=== PATIENT | male | born 1950 | race Caucasian/White ===

== ENCOUNTER 2018-11-04 09:09 | Inpatient (IN) | payer MEDICARE ==
[2018-11-04] VITALS (14 sets, daily range): BP systolic 120–150; BP diastolic 67–94; BMI 34.5
[~2018-11-04] VITALS: Ht 190.5 cm; Wt 125.5 kg
--- NOTE | ~2018-11-04 | HEMODYNAMI ---
PATIENT:VICKI QUINN MEDICAL RECORD: [id number] : 46 LOCATION:[facility] ADMISSION DATE: 11/04/18 Generatedon:11/04/201813:05 Patient name: VICKI QUINN Patient #: [id number] SSN: DO B: 1950 Date of study: 11/04/2018 Page: Of Hemodynamic Procedure Report Patient Data Patient Demographics First Name: VICKI Gender: Male Last Name: [place] : 1950 Patient #: [id number] Age: 68 year(s) Race: Unknown Additional ID: [id number] Contact details Address: [address] [place] [address] State: [facility] Zip code: [address] Past Medical History Allergies Allergen Reaction Date Comments Reported Other allergy 11/04/2018 Fosamax, aspirin, celecoxib,ibuprofen Admission Admission Data Admission Date: 11/04/2018 Admission Time: 9:09 Arrival Date: 11/04/2018 Arrival Time: 0:00 Height (in.): 75 BSA: 2.47 (m2) Height (cm.): 190.5 BMI: 33.07 (kg/m2) Weight (lbs.): 264.56 Weight (kg.): 120 Lab Results Lab Result Date: 11/04/2018 Lab Result Time: 0:00 Biochemistry Name Units Result Min Max BUN mg/dl 22 --(----)-* 7 18 Creatinine mg/dl 1.1 --(--*-)-- 0.6 1.3 CBC Name Units Result Min Max Hemoglobin g/dl 16 --(--*-)-- 13.5 17.5 Procedure Procedure Types Cath Procedure Diagnostic Procedure [facility] w/Coron[facility] Procedure Description Procedure Date Procedure Date: 11/04/2018 Procedure Start Time: 12:37 Procedure End Time: 12:56 Procedure Staff Name Function Chandan Vang MD Performing Physician Michaelle Sewell RT Monitor Courtney Farmer RN Nurse Yee Obando RT Scrub Daren Coffman RT Scrub Procedure Data Cath Procedure Fluoroscopy Diagnostic fluoroscopy Total fluoroscopy Time: 4.6 time: 4.6 min min Diagnostic fluoroscopy Total fluoroscopy dose: dose: 1261 mGy 1261 mGy Contrast Material Contrast Material Type Amount (ml) Isovue 300 98 Entry Location Entry Primary Successful Side Size Upsize Upsize Entry Closure Mcgowan ccessful Closure Location (Fr) 1 (Fr) 2 (Fr) Remarks Device Remarks Radial Right 6 Fr Mechanical TR artery Short Compression Estimated blood loss: 10 ml Diagnostic catheters Device Type Used For End Catheter Placement DIAGNOSTIC Federico 110cm Procedure 5Fr catheter ([id number]) DIAGNOSTIC [place] 110cm 5 Procedure Fr catheter ([id number]) Procedure Complications No complications Procedure Medications Medication Administration Route Dosage Oxygen etCO2 Nasal cannula 2 l/min Lidocaine 2% added to field 20 Heparin Flush Bag added to field 2 bags (1000units/500ml NS) 0.9% NaCl I.V. 100 ml/hr Versed I.V. 1 mg Fentanyl I.V. 50 mcg Versed I.V. 1 mg Fentanyl I.V. 50 mcg Radial Cocktail I.A. 1 syringe (Verapamil 2mg/Nitro 400mcg/Heparin 1500units) Versed I.V. 1 mg Fentanyl I.V. 50 mcg unlisted medication 1 Hemodynamics Rest BSA: 2.47 (m2) HGB: 16 (g/dl) O2 Consumption: Estimated: 298.61 (ml/min) O2 Cons umption indexed: Estimated:120.89 (ml/min/m) Heart Rate: 84 (bpm) Pressure Samples Time Site Value (mmHg) Purpose Heart Use Rate(bpm) 12:40 LV 126/0,14 Snapshot 81 Gradients Valve Time Site Site Mean SEP/DFP Peak To Heart Use 1 2 (mmHg) (sec/min) Peak Rate (mmHg) (bpm) Aortic 12:41 LV AO 87 Snapshots Pre Cath Intra NCS Post Cath Vital Signs Time Heart Resp SPO2 etCO2 NIBP (mmHg) Rhythm Pain Sedation Rate (ipm) (%) (mmHg) Status Level (bpm) 12:25:53 82 18 98 24.7 163/98(132) NSR 0 (11) 10(A) , No pain 12:30:24 81 18 97 21 161/91(126) NSR 0 (11) 10(A) , No pain 12:34:50 78 19 94 33 142/83(118) NSR 0 (11) 10(A) , No pain 12:39:16 78 15 94 32.2 158/81(117) NSR 0 (11) 10(A) , No pain 12:43:49 89 18 93 24.7 133/79(105) NSR 0 (11) 10(A) , No pain 12:48:11 77 16 94 31.4 144/80(111) NSR 0 (11) 10(A) , No pain 12:52:39 80 12 95 26.2 150/91(121) NSR 0 (11) 10(A) , No pain Medications Time Medication Route Dose Verified Delivered Reason Notes Effectiveness by by 12:29:03 Oxygen etCO2 2 l/min Chandan Buffie used for Nasal Taj Farmer RN procedure cannula 12:29:10 Lidocaine 2% added 20ml Chandan Chandan for local to vial Taj Vang MD anesthetic field 12:29:15 Heparin Flush added 2 bags Chandan Chandan used for Bag to Taj Vang MD procedure (1000units/500ml field NS) 12:29:24 0.9% NaCl I.V. 100 Chandan Buffie Per ml/hr Taj Farmer RN physician 12:30:32 Versed I.V. 1 mg Chandan Buffie for sedation Taj Farmer RN 12:30:37 Fentanyl I.V. 50 mcg Chandan Buffie for sedation Taj Farmer RN 12:35:41 Versed I.V. 1 mg Chandan Buffie for sedation Taj Farmer RN 12:35:45 Fentanyl I.V. 50 mcg Chandan Buffie for sedation Taj Farmer RN 12:40:26 Radial Cocktail I.A. 1 Chandan Chandan for (Verapamil syringe Taj Vang MD vasodilation 2mg/Nitro 400mcg/Heparin 1500units) 12:45:02 Versed I.V. 1 mg Chandan Chandan for sedation Taj Vang MD 12:45:05 Fentanyl I.V. 50 mcg Chandan Chandan for sedation Taj Vang MD 13:01:34 nitro paste dermal 1 inch Chandan Buffie Per to Taj Farmer RN physician chest wall Procedure Log Time Note 12:10:19 Arrival Date: 11/04/2018 12:00:00 AM 12:18:34 Patient Height : 75 inches 12:19:38 Patient Weight : 264.56 lbs 12:20:33 Lab Result : Creatinine 1.1 mg/dl 12::33 Lab Result : BUN 22 mg/dl 12:20:33 Lab Result : Hemoglobin 16 g/dl 12:23:23 Procedure Status Urgent Heart Cath (IP). 12:24:06 Courtney Farmer RN sent for patient. Start room use. 12:24:10 Time tracking: Regular hours (M-F 7:00 - 5:00) 12:24:15 Plan of Care:Hemodynamics will remain stable., Cardiac rhythm will remain stable., Comfort level will be maintained., Respiratory function will remain adequate., Patient/ family verbilizes understanding of procedure., Procedure tolerated without complication., Recovers from procedure without complications.. 12:24:23 Patient received from ED to CCL 1 Alert and oriented. Tansferred to table in Supine position. 12:24:25 Warm blankets applied, and pati hugger turned on for patient comfort. 12:24:26 Correct patient and procedure confirmed by team. 12:24:27 ECG and BP/O2 sat monitors applied to patient. 12:24:30 Vital chart was started 12:24:32 Baseline sample Acquired. 12:24:45 Rhythm: sinus rhythm 12:24:47 Full Disclosure recording started 12:24:57 H&P Date Dictated: 11/04/2018 Emergent; H&P N/A. 12:24:59 Pre-procedure instructions explained to patient. 12:25:01 Family in waiting room. 12:25:03 Patient NPO since Midnight. 12:25:56 Patient allergic to Other allergyFosamax, aspirin, celecoxib,ibuprofen 12:25:59 Is the patient allergic to Iodine/contrast media? No. 12:26:01 Was the patient premedicated? Yes 12:26:03 Is patient on blood thinner?No 12:26:05 Patient diabetic? Yes. 12:26:06 If diabetic: On Metformin? Yes 12:26:10 If on Metformin: Last Dose? 11/03/2018 12:26:29 Snore? Yes 12:26:48 Sleep apnea? Yes 12:27:34 Pre procedure: right dorsailis pedis pulse 1+ Palpable, but thready & weak; easily obliterated 12:27:40 Patient pain scale 0/10 ?. 12:27:51 Lab results completed and on chart. 12:27:56 Right Radial & Right Groin area was prepped with chlora-prep and draped in sterile fashion 12::57 Sharps counted by scrub and verified by RCorwinN. 12:27:59 Physician paged 12::00 Physician arrived 12::00 --------ALL STOP TIME OUT------ 12:28:03 Final Timeout: patient, procedure, and site verified with staff and physician. All members of the team are in agreement. 12:28:06 Right Radial & Right Groin site verified by team. 12:28:10 Fire Safety Assessment: A--An alcohol-based skin anteseptic being used preoperatively., C--Open oxygen or nitrous oxide is being used., D--An ESU, laser, or fiber-optic light is being used. 12:28:15 Physical assessment completed. ASA score P 2 - A patient with mild systemic disease as per Chandan Vang MD. 12:28:32 2) 60-89 Mildly reduced kidney function, and other findings (as for stage 1) point to kidney disease. 12:29:02 Maximum allowable contrast dose (3.7 X eGFR X 0.75)194.25 ml. 12:29:03 Oxygen 2 l/min etCO2 Nasal cannula was administered by Courtney Farmer RN; used for procedure; 12:29:10 Lidocaine 2% 20ml vial added to field was administered by Chandan Vang MD; for local anesthetic; 12:29:10 Sedation plan: IV Moderate Sedation Medication:Versed, Fentanyl 12:29:15 Heparin Flush Bag (1000units/500ml NS) 2 bags added to field was administered by Chandan Vang MD; used for procedure; 12:29:16 Use device set Femoral Dx 12::23 ACIST Syringe (19739) opened to sterile field. 12:29:23 Bag Decanter (2002) opened to sterile field. 12:29:24 0.9% NaCl 100 ml/hr I.V. was administered by Courtney Farmer RN; Per physician; 12:29:26 Medline Cath Pack ([id number]) opened to sterile field. 12:29:28 ACIST Hand Control (23774) opened to sterile field. 12:29:28 ACIST Manifold (52762) opened to sterile field. 12:29:29 DIAGNOSTIC Multipack 5Fr catheter set (QS1111) opened to sterile field. 12:30:32 Versed 1 mg I.V. was administered by Courtney Farmer RN; for sedation; 12:30:37 Fentanyl 50 mcg I.V. was administered by Courtney Farmer RN; for sedation; 12:35:41 Versed 1 mg I.V. was administered by Courtney Farmer RN; for sedation; 12:35:45 Fentanyl 50 mcg I.V. was administered by Courtney Farmer RN; for sedation; 12:35:58 Procedure started. 12:37:30 Local anesthetic to right radial artery with Lidocaine 2% by Chandan Vang MD.INITIAL ACCESS ONLY 12:37:41 A 6 Fr Short sheath was inserted into the Right Radial artery 12:40:26 Radial Cocktail (Verapamil 2mg/Nitro 400mcg/Heparin 1500units) 1 syringe I.A. was administered by Chandan Vang MD; for vasodilation; 12:40:27 A DIAGNOSTIC Federico 110cm 5Fr catheter (178112) was advanced over the wire and used for Procedure. 12:40:33 LV gram done using JAIME 12:42:12 EF : 40 % 12:42:26 RCA angiography performed. 12:44:53 Catheter removed. 12:45:02 Versed 1 mg I.V. was administered by Chandan Vang MD; for sedation; 12:45:05 Fentanyl 50 mcg I.V. was administered by Chandan Vang MD; for sedation; 12:45:18 A DIAGNOSTIC [place] 110cm 5 Fr catheter (697130) was advanced over the wire and used for Procedure. 12:48:12 LCA angiography performed. 12:50:52 Catheter removed. 12:51:00 EMERALD Guide Wire (945-314) opened to sterile field. 12:51:03 Tegaderm 4 x 4 (1626W) opened to sterile field. 12:51:20 TR BAND Large ([id number]) opened to sterile field. 12:51:56 ACCDominant side:Co-Dominant 12:52:23 Sheath removed intact; hemostasis achieved with Mechanical Compression to the Right Radial artery. 12:52:27 Procedure ended.(Physican Out) 12:53:23 Fluoroscopy time 04.60 minutes. 12:53:28 Fluoroscopy dose: 1261 mGy 12:53:28 Flurop Dose total: 1261 12:53:40 Dose Area Product 63189 mGy/cm. 12:54:13 Contrast amount:Isovue 300 98ml. 12:54:16 Maximum allowable dose exceeded? No. 12:54:20 Sharps counted by scrub and verified by R.N. 12:54:23 TR band inflated with 10cc of air. 12:54:24 Insertion/operative site no bleeding no hematoma. 12:54:27 Post Procedure Pulses reassessed and unchanged 12:54:30 Post-procedure physical assessment completed. ASA score P 2 - A patient with mild systemic disease as per Chandan Vang MD. 12:54:42 Post procedure rhythm: unchanged. 12:54:46 Estimated blood loss: 10 ml 12:54:48 Post procedure instruction explained to patient.Patient verbalizes understanding. 12:54:59 Procedure and supply charges have been captured, reviewed, submitted and are correct. 12:55:46 Procedure Complication : No complications 12:55:49 Vital chart was stopped 12:55:50 See physician's report for complete and final results. 12:55:56 Report given to PCU. 12:56:00 Patient transfered to PCU with Bed. 12:56:02 Procedure ended. 12:56:02 Full Disclosure recording stopped 12:56:05 End room use (Document Last) 13:01:34 nitro paste 1 inch dermal to chest wall was administered by Courtney Farmer RN; Per physician; Device Usage Item Name Manufacture Quantity Catalog Hospital Part Current Minimal L ot# / Number Charge Number Stock Stock Serial# Code ACIST Acist 1 23987 097360 210366 702687 20 Syringe Medical (88862) Systems Inc Bag Microtek 1 2001S 259886 48534 798131 5 Decanter Medical Inc. () Medline Medline 1 [id number] 124387 42299 621611 5 Cath Pack ([id number]) ACIST Hand Acist 1 98558 400376 240809 443027 5 Control Medical (85533) Systems Inc ACIST Acist 1 26337 100917 574202 704680 5 Manifold Medical (56723) Systems Inc DIAGNOSTIC Cardinal 1 TB7738 861137 71403 284068 30 Multipack Health 5Fr catheter set (DC0605) DIAGNOSTIC Terumo 1 40-5023 775467 795582 322237 5 Federico 110cm 5Fr catheter (117303) DIAGNOSTIC Terumo 1 40-5013 449691 881918 380934 5 [place] 110cm 5 Fr catheter (433265) EMERALD Cardinal 1 502-021 468045 504213 566151 5 Guide Wire Health (502-080) Tegaderm 4 3M 1 1626W 548410 166385 583270 5 x 4 (1626W) TR BAND Terumo 1 LFB23-IFH 347250 879085 954339 40 Large ([id number]) Signature Audit Theresa Stage Time Signature Unsigned Intra-Procedure 11/04/2018 Michaelle Sewell 1:05:30 PM RT(R) Signatures Performing Physician : Signature : Chandan Vang MD Date : Time : Monitor : Michealle Sewell Signature : RT Date : Time : Nurse : Courtney Farmer RN Signature : Date : Time : [facility] [address] [place], [place] [address]
[2018-11-04] MEDS ORDERED: CALCIUM 250+D T1 TAB PO (09:16)
[2018-11-04] MEDS ORDERED: FLAX SEED OIL PO (09:17)
[2018-11-04] MEDS ORDERED: NEURONTIN 400400 MG PO (09:17)
[2018-11-04] MEDS ORDERED: GLUCOPHAGE500 MG PO (09:18)
[2018-11-04] MEDS ORDERED: LASIX80 MG PO (09:18)
[2018-11-04] MEDS ORDERED: METOPROLOL TART25 MG PO (09:19)
[2018-11-04] MEDS ORDERED: PERCOCET 10-321 EAC1 PO (09:20)
[2018-11-04] MEDS ORDERED: KLOR-CON 1010 MEQ PO (09:22)
[2018-11-04] MEDS ORDERED: PHENERGAN25 M1 PO (09:23)
[2018-11-04] MEDS ORDERED: ZANAFLEX4 MG PO (09:24)
[2018-11-04] MEDS ORDERED: TRAZODONE HCL150 MG PO (09:24)
[2018-11-04] MEDS ORDERED: COUMADIN7.5 MG PO (09:24)
[2018-11-04] MEDS ORDERED: JARDIANCE10 MG PO (09:50)
[2018-11-04 10:19] LABS: BASOPHILS 0.1 % (0-2); EOSINOPHILS 0.5 % (0-7); HEMATOCRIT 46.4 % (42.0-54.0); IMMATURE GRANULOCYTES 0.4 % (0-5); LYMPHOCYTES 37.8 % (15-50); MCH 31.4 pg (26.0-34.0); MCHC 34.5 g/dL (31.0-37.0); MCV 91.2 fL (80.0-100.0); MEAN PLATELET VOLUME 10.8 fL (7.4-10.4); MONOCYTES 5.5 % (2-11); NEUTROPHILS 55.7 % (40-80); PLATELET COUNT 216 10x3/uL (130-400); RBC 5.09 10x6/uL (4.20-6.10); RDW 13.8 % (11.5-14.5); WBC 11.3 10x3/uL (4.8-10.8)
[2018-11-04 10:28] LABS: CALC OSMOLALITY 294 mosm/kg (275-300); CALCIUM 9.4 mg/dL (8.5-10.1); CARBON DIOXIDE 23.9 mmol/L (21.0-32.0); CHLORIDE - SERUM 105 mmol/L (98-107); CREATINE KINASE 250 UL (21-232); CREATININE - SERUM 1.1 mg/dL (0.6-1.3); GLUCOSE 220 mg/dL (74-106); MAGNESIUM - SERUM 2.2 mg/dL (1.8-2.4); POTASSIUM - SERUM 4.2 mmol/L (3.5-5.1); SODIUM 143 mmol/L (136-145); UREA NITROGEN 22 mg/dL (7-18); eGFR NON AFRICAN AMERICAN 70 mL/min (90-120)
[2018-11-04 10:37] LABS: PRO BNP 1095 pg/mL (0-125)
[2018-11-04 10:46] LABS: CKMB 32.8 U/L (0.0-3.6)
[2018-11-04] MEDS ORDERED: LASIX40 MG PO (13:38)
[2018-11-04 14:19] LABS: ALBUMIN 3.2 g/dL (3.4-5.0); ALKALINE PHOSPHATASE 80 U/L (46-116); ALT (SGPT) 29 U/L (10-68); CALC OSMOLALITY 290 mosm/kg (275-300); CALCIUM 8.5 mg/dL (8.5-10.1); CARBON DIOXIDE 26.6 mmol/L (21.0-32.0); CHLORIDE - SERUM 105 mmol/L (98-107); CHOLESTEROL, TOTAL 143 mg/dL (0-200); GLUCOSE 182 mg/dL (74-106); PHOSPHOROUS 3.7 mg/dL (2.5-4.9); POTASSIUM - SERUM 4.1 mmol/L (3.5-5.1); PROTEIN - SERUM 7.1 g/dL (6.4-8.2); SODIUM 142 mmol/L (136-145); T4 THYROXIN - FREE 1.18 ng/dL (0.76-1.46); THYROID STIMULATING HORMONE 0.92 uIU/mL (0.36-3.74); UREA NITROGEN 20 mg/dL (7-18); URIC ACID 6.7 mg/dL (2.6-7.2); eGFR NON AFRICAN AMERICAN 78 mL/min (90-120)
[2018-11-04 14:34] LABS: PLT FUNCT.(P2Y12) PLAVIX 173 PRU (194-418)
[2018-11-04 14:39] LABS: PRO BNP 1212 pg/mL (0-125)
[2018-11-04 14:57] LABS: INR 2.44 (0.85-1.17); PROTIME 25.7 SECONDS (11.6-15.0)
[2018-11-04 14:58] LABS: APTT 55.1 SECONDS (22.8-39.4)
[2018-11-04 16:33] LABS: PLT FUNCT.(P2Y12) PLAVIX 189 PRU (194-418)
--- NOTE | 2018-11-04 19:59 | MORECARE ---
CASE MANAGEMENT DISCHARGE SUMMARY PATIENT: VICKI QUINN UNIT: [id number] ADM DATE: 11/04/18 AGE: 68 : 48 SEX: M ROOM/BED: [facility] AUTHOR: JAYME OSMAN PHYSICIAN: REFERRING PHYSICIAN: HEMALATHA SMITH M.D. DATE OF SERVICE: 11/04/18 Discharge Plan Patient Name: VICKI QUINN Facility: [facility]:[place] : 1950 Planned Disposition: Home Anticipated Discharge Date: Discharge Date: Expected LOS: Initial Reviewer: [email or web address] Initial Review Date: 11/04/2018 Generated: 11/04/18 8:59 pm Patient Name: VICKI QUINN Page 54554 at 1960 All edits/amendments must be made on the electronic document DICTATION DATE: 11/04/181958 PRIMARY CARE COORDINATOR: BHUPINDER 11/04/181958 RPT#: [id number] DC DATE: STATUS: ADM IN [facility] [address] [place] [address] END OF REPORT
--- NOTE | 2018-11-04 20:07 | MORECARE ---
CASE MANAGEMENT DISCHARGE SUMMARY PATIENT: VICKI QUINN UNIT: [id number] ADM DATE: 11/04/18 AGE: 68 : 48 SEX: M ROOM/BED: [facility] AUTHOR: JACQUI,DOC PHYSICIAN: REFERRING PHYSICIAN: HEMALATHA SMITH M.D. DATE OF SERVICE: 11/04/18 Discharge Plan Patient Name: VICKI QUINN Facility: [facility]:[place] : 1950 Planned Disposition: Home Anticipated Discharge Date: Discharge Date: Expected LOS: Initial Reviewer: [email or web address] Initial Review Date: 11/04/2018 Generated: 11/04/18 9:07 pm Comments DCP- Discharge Planning Updated by [email or web address]: Michelle Cook on 11/04/18 7:[address] Patient Name: VICKI QUINN Admission Status: ER Accout number: [id number] Admission Date: 11-04-2018 : 1950 Admission Diagnosis: Attending: HEMALATHA SMITH Current LOS: 1 Anticipated DC Date: Planned Disposition: Home Primary Insurance: [facility] [employer] Discharge Planning Comments: CM met with patient at bedside after explaining CM role and obtaining verbal consent. Patient lives at home with his ex- and plans to return there upon discharge. Patient feels this would be a safe discharge. CM discussed availability / needs of home health and medical equipment. Patient denies any discharge needs at this time. Patient states he will have his family drive him home upon discharge. CM will continue to follow and assist as needed with discharge planning / needs. Process Tech: Michelle Cook DCPIA - Discharge Planning Initial Assessment Updated by [email or web address]: Michelle Cook on 11/04/18 8:00 pm * Is the patient Alert and Oriented? Yes * How many steps to enter\exit or inside your home? * PCP [facility] * [facility] * Preadmission Environment Home with Family * ADLs Independent * Equipment Shower Chair * List name and contact numbers for known caregivers / representatives who currently or will assist patient after discharge: JOVANNA ENRIQUEZ- [facility]- [phone] * Verbal permission to speak to the caregivers and representatives has been obtained from the patient. Yes * Community resources currently utilized None * Additional services required to return to the preadmission environment? No * Can the patient safely return to the preadmission environment? Yes * Has this patient been hospitalized within the prior 30 days at any hospital? No Last DP export: 11/04/18 6:59 p Patient Name: VICKI QUINN Page 14166 at 2006 All edits/amendments must be made on the electronic document DICTATION DATE: 11/04/182006 IT SERVICE DELIVERY MANAGER: BHUPINDER 11/04/182006 RPT#: [id number] DC DATE: STATUS: ADM IN [facility] [address] [place] [address] END OF REPORT
[2018-11-04 20:26] LABS: INR 1.77 (0.85-1.17)
[2018-11-05] VITALS (32 sets, daily range): BP systolic 95–168; BP diastolic 51–112; BMI 34.4
[2018-11-05 06:46] LABS: BASOPHILS 0.1 % (0-2); EOSINOPHILS 0.6 % (0-7); HEMATOCRIT 40.7 % (42.0-54.0); HEMOGLOBIN 13.4 g/dL (13.5-17.5); IMMATURE GRANULOCYTES 0.2 % (0-5); LYMPHOCYTES 25.3 % (15-50); MCH 30.7 pg (26.0-34.0); MCHC 32.9 g/dL (31.0-37.0); MEAN PLATELET VOLUME 10.9 fL (7.4-10.4); MONOCYTES 6.2 % (2-11); NEUTROPHILS 67.6 % (40-80); PLATELET COUNT 183 10x3/uL (130-400); RBC 4.36 10x6/uL (4.20-6.10); RDW 13.7 % (11.5-14.5); WBC 10.2 10x3/uL (4.8-10.8)
[2018-11-05 06:51] LABS: MCV 93.3 fL (80.0-100.0)
[2018-11-05 07:01] LABS: INR 1.58 (0.85-1.17); PROTIME 18.3 SECONDS (11.6-15.0)
[2018-11-05 07:07] LABS: ALBUMIN 3.1 g/dL (3.4-5.0); ALKALINE PHOSPHATASE 74 U/L (46-116); ALT (SGPT) 26 U/L (10-68); BILIRUBIN - TOTAL 0.46 mg/dL (0.2-1.3); CALC OSMOLALITY 286 mosm/kg (275-300); CALCIUM 8.3 mg/dL (8.5-10.1); CARBON DIOXIDE 25.7 mmol/L (21.0-32.0); CHLORIDE - SERUM 106 mmol/L (98-107); CREATININE - SERUM 0.9 mg/dL (0.6-1.3); GLUCOSE 149 mg/dL (74-106); MAGNESIUM - SERUM 2.1 mg/dL (1.8-2.4); PHOSPHOROUS 3.2 mg/dL (2.5-4.9); POTASSIUM - SERUM 3.9 mmol/L (3.5-5.1); PROTEIN - SERUM 6.9 g/dL (6.4-8.2); SODIUM 141 mmol/L (136-145); UREA NITROGEN 21 mg/dL (7-18); eGFR NON AFRICAN AMERICAN 89 mL/min (90-120)
[2018-11-05 11:24] LABS: INR 1.42 (0.85-1.17); PROTIME 16.7 SECONDS (11.6-15.0)
[2018-11-05 19:10] LABS: INR 1.63 (0.85-1.17); PROTIME 18.7 SECONDS (11.6-15.0)
[2018-11-05 22:01] LABS: INR 1.33 (0.85-1.17); PROTIME 15.9 SECONDS (11.6-15.0)
[2018-11-06] VITALS (40 sets, daily range): BP systolic 105–137; BP diastolic 53–91
[2018-11-06 05:57] LABS: BASOPHILS 0 % (0-2); EOSINOPHILS 0 % (0-7); IMMATURE GRANULOCYTES 0.1 % (0-5); LYMPHOCYTES 12.3 % (15-50); MCH 30.5 pg (26.0-34.0); MCHC 33.1 g/dL (31.0-37.0); MCV 92.1 fL (80.0-100.0); MEAN PLATELET VOLUME 9.9 fL (7.4-10.4); MONOCYTES 6.4 % (2-11); NEUTROPHILS 81.2 % (40-80); RDW 13.6 % (11.5-14.5); WBC 9.4 10x3/uL (4.8-10.8)
[2018-11-06 06:14] LABS: ALBUMIN 2.7 g/dL (3.4-5.0); ALKALINE PHOSPHATASE 63 U/L (46-116); BILIRUBIN - TOTAL 0.47 mg/dL (0.2-1.3); CALC OSMOLALITY 292 mosm/kg (275-300); CALCIUM 7.4 mg/dL (8.5-10.1); CARBON DIOXIDE 25.6 mmol/L (21.0-32.0); CHLORIDE - SERUM 110 mmol/L (98-107); CREATININE - SERUM 0.8 mg/dL (0.6-1.3); GLUCOSE 154 mg/dL (74-106); MAGNESIUM - SERUM 2.3 mg/dL (1.8-2.4); POTASSIUM - SERUM 3.8 mmol/L (3.5-5.1); SODIUM 145 mmol/L (136-145); UREA NITROGEN 16 mg/dL (7-18); eGFR NON AFRICAN AMERICAN > 90 mL/min (90-120)
[2018-11-06 06:15] LABS: HEMATOCRIT 31.4 % (42.0-54.0); HEMOGLOBIN 10.4 g/dL (13.5-17.5); PLATELET COUNT 195 10x3/uL (130-400); RBC 3.41 10x6/uL (4.20-6.10)
[2018-11-06 06:16] LABS: ALT (SGPT) 72 U/L (10-68)
[2018-11-06 06:52] LABS: INR 1.33 (0.85-1.17); PROTIME 15.9 SECONDS (11.6-15.0)
[2018-11-06 07:45] LABS: APPEARANCE CLEAR (CLEAR); BILIRUBIN NEGATIVE (NEGATIVE); COLOR YELLOW (YELLOW); GLUCOSE 1000 mg/dL (NEGATIVE); KETONE MODERATE mg/dL (NEGATIVE); NITRITE NEGATIVE (NEGATIVE); PROTEIN NEGATIVE (NEGATIVE); SPECIFIC GRAVITY 1.005 (1.005-1.020); UROBILINOGEN NORMAL (NORMAL)
[2018-11-07] VITALS (24 sets, daily range): BP systolic 104–147; BP diastolic 61–98
[2018-11-07 06:17] LABS: BASOPHILS 0 % (0-2); EOSINOPHILS 0 % (0-7); HEMATOCRIT 32.6 % (42.0-54.0); HEMOGLOBIN 10.6 g/dL (13.5-17.5); IMMATURE GRANULOCYTES 0.3 % (0-5); MCH 30.5 pg (26.0-34.0); MCHC 32.5 g/dL (31.0-37.0); MCV 93.9 fL (80.0-100.0); MEAN PLATELET VOLUME 10.9 fL (7.4-10.4); MONOCYTES 8.1 % (2-11); NEUTROPHILS 79.6 % (40-80); PLATELET COUNT 194 10x3/uL (130-400); RBC 3.47 10x6/uL (4.20-6.10); RDW 14.4 % (11.5-14.5)
[2018-11-07 06:26] LABS: WBC 13.3 10x3/uL (4.8-10.8)
[2018-11-07 06:47] LABS: ALBUMIN 2.4 g/dL (3.4-5.0); ALKALINE PHOSPHATASE 59 U/L (46-116); ALT (SGPT) 60 U/L (10-68); BILIRUBIN - TOTAL 0.46 mg/dL (0.2-1.3); CALC OSMOLALITY 290 mosm/kg (275-300); CALCIUM 7.7 mg/dL (8.5-10.1); CHLORIDE - SERUM 109 mmol/L (98-107); CREATININE - SERUM 0.6 mg/dL (0.6-1.3); GLUCOSE 150 mg/dL (74-106); MAGNESIUM - SERUM 2.2 mg/dL (1.8-2.4); PHOSPHOROUS 2.1 mg/dL (2.5-4.9); POTASSIUM - SERUM 3.7 mmol/L (3.5-5.1); PROTEIN - SERUM 6.2 g/dL (6.4-8.2); SODIUM 144 mmol/L (136-145); UREA NITROGEN 14 mg/dL (7-18); eGFR NON AFRICAN AMERICAN > 90 mL/min (90-120)
--- NOTE | 2018-11-07 09:24 | TEE ---
PATIENT:VICKI QUINN MEDICAL RECORD: [id number] LOCATION:[place] [address] AGE OF PATIENT: 68 ADMISSION DATE: 11/04/18 SEX: M REFERRING PHYSICIAN: INTERPRETING PHYSICIAN: RAJANI WHITE MD TRANSESOPHAGEAL ECHOCARDIOGRAM Date: 11/05/18 TALYA CHARGE Y INDICATIONS: CABG PREMEDICATIONS: PATIENT'S RESPONSE PROCEDURE DOPPLER MEASUREMENTS: LVIT LA PA 78.0 RA LVOT 66.0 RVOT 87.0 Asc. Ao 113 AV Gradient Peak 5.1 AV Mean 2.4 AV Area 3.1 MV Gradient Peak 3.4 MV Mean 1.3 MV Area INTERPRETATION: Doppler: 2-D: COLOR FLOW DOPPLER NORMAL SALINE STUDY: MISCELLANOUS: DIAGNOSIS: PLAN: [employer] Supervisor:Brittany Vang Armature Bander: Luis CULVER COMMENTS: DATE OF SERVICE: 11/06/2018 PROCEDURE: Intraoperative TALYA. Preop shows EF 50% with mild MR. No focal wall motion abnormality. LV internal dimensions appeared to be somewhat smaller with good contractility throughout all segments and good excursion of all valves. TRANSINT:[id number] Voice Confirmation ID: [id number] DOCUMENT ID: [id number] TRANSESOPHAGEAL ECHOCARDIOGRAM REPORT [id number] VICKI QUINN at 0924 CC: [id number] DICTATION DATE: 11/06/18 1007 WINE MASTER: 11/06/18 1107 ADM IN [place] [address] [place] [id number]
[2018-11-08] VITALS (24 sets, daily range): BP systolic 104–155; BP diastolic 60–89
[2018-11-08 05:26] LABS: BASOPHILS 0.1 % (0-2); EOSINOPHILS 0.1 % (0-7); HEMATOCRIT 28.8 % (42.0-54.0); HEMOGLOBIN 9.2 g/dL (13.5-17.5); IMMATURE GRANULOCYTES 0.2 % (0-5); LYMPHOCYTES 16.4 % (15-50); MCH 30.2 pg (26.0-34.0); MCHC 31.9 g/dL (31.0-37.0); MCV 94.4 fL (80.0-100.0); MEAN PLATELET VOLUME 10.8 fL (7.4-10.4); MONOCYTES 6.4 % (2-11); NEUTROPHILS 76.8 % (40-80); PLATELET COUNT 180 10x3/uL (130-400); RBC 3.05 10x6/uL (4.20-6.10); RDW 14.4 % (11.5-14.5); WBC 10.7 10x3/uL (4.8-10.8)
[2018-11-08 05:47] LABS: ALKALINE PHOSPHATASE 88 U/L (46-116); BILIRUBIN - TOTAL 0.41 mg/dL (0.2-1.3); CALCIUM 7.5 mg/dL (8.5-10.1); CHLORIDE - SERUM 109 mmol/L (98-107); CREATININE - SERUM 0.7 mg/dL (0.6-1.3); GLUCOSE 158 mg/dL (74-106); MAGNESIUM - SERUM 2.2 mg/dL (1.8-2.4); PHOSPHOROUS 2.3 mg/dL (2.5-4.9); POTASSIUM - SERUM 3.2 mmol/L (3.5-5.1); PROTEIN - SERUM 5.7 g/dL (6.4-8.2); SODIUM 144 mmol/L (136-145); eGFR NON AFRICAN AMERICAN > 90 mL/min (90-120)
[2018-11-08 05:49] LABS: ALT (SGPT) 93 U/L (10-68); CALC OSMOLALITY 291 mosm/kg (275-300); UREA NITROGEN 19 mg/dL (7-18)
[2018-11-09] VITALS (24 sets, daily range): BP systolic 111–142; BP diastolic 64–99
[2018-11-09 05:44] LABS: BASOPHILS 0.1 % (0-2); EOSINOPHILS 0.2 % (0-7); HEMATOCRIT 32.6 % (42.0-54.0); HEMOGLOBIN 10.8 g/dL (13.5-17.5); IMMATURE GRANULOCYTES 0.3 % (0-5); LYMPHOCYTES 18.4 % (15-50); MCH 31.8 pg (26.0-34.0); MCHC 33.1 g/dL (31.0-37.0); MCV 95.9 fL (80.0-100.0); MEAN PLATELET VOLUME 11.3 fL (7.4-10.4); MONOCYTES 4.7 % (2-11); NEUTROPHILS 76.3 % (40-80); PLATELET COUNT 213 10x3/uL (130-400); RDW 14.4 % (11.5-14.5)
[2018-11-09 05:50] LABS: WBC 19.1 10x3/uL (4.8-10.8)
[2018-11-09 06:01] LABS: ALKALINE PHOSPHATASE 110 U/L (46-116); ALT (SGPT) 136 U/L (10-68); BILIRUBIN - TOTAL 0.86 mg/dL (0.2-1.3); CALC OSMOLALITY 294 mosm/kg (275-300); CALCIUM 7.7 mg/dL (8.5-10.1); CARBON DIOXIDE 28.7 mmol/L (21.0-32.0); CHLORIDE - SERUM 105 mmol/L (98-107); CREATININE - SERUM 0.9 mg/dL (0.6-1.3); GLUCOSE 223 mg/dL (74-106); MAGNESIUM - SERUM 2.1 mg/dL (1.8-2.4); PHOSPHOROUS 2.5 mg/dL (2.5-4.9); POTASSIUM - SERUM 3.3 mmol/L (3.5-5.1); PROTEIN - SERUM 6.4 g/dL (6.4-8.2); SODIUM 143 mmol/L (136-145); UREA NITROGEN 22 mg/dL (7-18); eGFR NON AFRICAN AMERICAN 89 mL/min (90-120)
--- NOTE | 2018-11-09 08:25 | OP ---
PATIENT NAME: VICKI QUINN MEDICAL RECORD: [id number] :46 LOCATION:D.CVI D.CV02 ADMISSION DATE:11/04/18 SURGEON: IGLESIA SABA MD DATE OF OPERATION: 11/05/2018 SURGEON: Iglesia Saba MD NEUROLOGY DIRECTOR: Chandler Hong. OPERATION PERFORMED: 1. Coronary artery bypass graft times 3 (left internal mammary to LAD, reverse saphenous vein graft from aorta to first diagonal and aorta to obtuse marginal). 2. Endoscopic saphenous vein harvest. 3. Insertion of intraaortic balloon pump percutaneously via right common femoral artery. PREOPERATIVE DIAGNOSES: Myocardial infarction and coronary artery disease. POSTOPERATIVE DIAGNOSES: Myocardial infarction and coronary artery disease. ANESTHESIA: General endotracheal anesthesia. ESTIMATED BLOOD LOSS: Total cardiopulmonary bypass with Cell Saver retransfusion, 3 platelet, 2 FFP. SPECIMENS: None. COMPLICATIONS: Coagulopathy. CONDITION: Critical. DISPOSITION: CV ICU. OPERATIVE FINDINGS: 1. Transesophageal echocardiography confirmed severe LVH, no significant valvular stenosis or incompetence and 50% left ventricular ejection fraction. Essentially unchanged after separation from cardiopulmonary bypass. 2. Moderately large quality greater saphenous vein from the right leg, a separate bridging incision was necessary due to a large side branch. 3. Good quality left internal mammary artery. 4. Large heart with severe LVH. 5. LAD was at least 5 mm deep intramyocardial and the more proximal intramyocardial portion actually had severe plaque. The RV was entered on dissecting out the intramyocardial LAD requiring pledgeted closure. There was good Doppler signal after anastomosis of left internal mammary artery to LAD and after reversal of heparin. 6. First diagonal was a 1.5 mm vessel with severe disease, anastomosis and plaque. 7. Largest obtuse marginal was 2.0 mm with severe disease. 8. Evidence of coagulopathy with chronic Coumadin and preoperative platelet inhibition. 9. Hypotension after separation from cardiopulmonary bypass by about 5 minutes on low dose dopamine so intraaortic balloon pump inserted percutaneously via the right common femoral artery, single stick, without complications. 10. Severe emphysema and adhesions to left upper lobe. OPERATIVE REPORT [id number] VICKI QUINN OPERATIVE INDICATION: Myocardial infarction, critical proximal LAD stenosis and ongoing chest pain. OPERATIVE SUMMARY IN DETAIL: The patient was brought to the operating suite. General anesthesia was obtained, the patient was prepped and draped. Greater saphenous vein harvested from right lower extremity utilizing endoscopic technique. Side branches were divided with electrocautery. The vessel was ligated proximally and distally. Mid-thigh bridging incision was made. Large side branch was divided. The vessel was removed, perfused. Side branches were tied and then sites were oversewn. Leg was later irrigated and closed in 2 layers. Median sternotomy incision was made. Subcutaneous tissue was divided with electrocautery. The sternum was divided with a saw. Left hemisternum was elevated. Left pleural cavity was entered. Left internal mammary vein was taken as a pedicle graft. Sternal retractor was placed. Pericardium was opened. Heparin was given. The aorta was cannulated. Dual stage venous cannula was inserted. Activated clotting time was appropriately elevated. The internal mammary was clipped distally and made ready for anastomosis. The patient was placed on cardiopulmonary bypass. Sites for distal anastomoses were selected. The patient was cooled. Antegrade cardioplegia cannula was inserted. Crossclamp was placed. Cardioplegia given antegrade and this repeated including down the completed vein grafts at 15 minute intervals. Distal anastomosis was performed in standard technique. Proximal anastomosis with single cross-clamp technique. Aortic root was deaired. Vein grafts deaired. Proximal anastomoses tied down. Vein grafts deaired and flow restored. Proximal and distal anastomotic sites were inspected for bleeding. Pledgeted suture was used to repair the deep cleft and the heart, exposing the LAD. The patient was fully rewarmed and sinus rhythm, weaned from cardiopulmonary bypass and was stable. The patient was decannulated. Protamine was given. Transfusion of platelets and FFP ensued. The patient became hypotensive. Right femoral artery was cannulated. Guidewire was placed. Sheath was placed after sequential dilators and the balloon was placed to the appropriate size with good augmentation and sutured in place. Hemostasis was ensured in the chest. Graft lay appropriately. Thorough irrigation was undertaken. Drains were placed in the mediastinum and left pleural cavity. Ventricular pacing wires were placed. Pericardial fat was only approximated over the aorta. Left chest was evacuated as much as possible with adhesions, internal mammary harvest site was inspected for bleeding. Sternum was closed with wires. The patient was stable. The chest was closed. The fascia was closed. Subcutaneous tissue was closed. Skin was closed. Dermabond was placed. The needle and sponge counts were reported as correct. The patient was taken to ICU in stable condition. TRANSINT:[id number] Voice Confirmation ID: [id number] DOCUMENT ID: [id number] OPERATIVE REPORT [id number] VICKI QUINN DANIEL W MD at 0825 CC: HEMALATHA SMITH M.D. and KARMEN GONSALES MD [id number] DICTATION DATE: 11/05/182019 CITY DIRECTOR: 11/05/18 2334 ADM IN [place] [id number] [place] [address]
[2018-11-09 11:49] LABS: APPEARANCE CLEAR (CLEAR); BILIRUBIN NEGATIVE (NEGATIVE); COLOR YELLOW (YELLOW); GLUCOSE 1000 mg/dL (NEGATIVE); KETONE SMALL mg/dL (NEGATIVE); NITRITE NEGATIVE (NEGATIVE); PROTEIN NEGATIVE (NEGATIVE); SPECIFIC GRAVITY 1.015 (1.005-1.020); UROBILINOGEN NORMAL (NORMAL)
[2018-11-10] VITALS (24 sets, daily range): BP systolic 105–148; BP diastolic 62–92; Ht 190.5 cm; Wt 125.5 kg
[2018-11-10 05:20] LABS: HEMATOCRIT 32.9 % (42.0-54.0); HEMOGLOBIN 10.6 g/dL (13.5-17.5); MCH 30.4 pg (26.0-34.0); MCHC 32.2 g/dL (31.0-37.0); MCV 94.3 fL (80.0-100.0); MEAN PLATELET VOLUME 11.3 fL (7.4-10.4); RBC 3.49 10x6/uL (4.20-6.10); RDW 14.2 % (11.5-14.5); WBC 19.1 10x3/uL (4.8-10.8)
[2018-11-10 07:21] LABS: ALBUMIN 2.2 g/dL (3.4-5.0); BILIRUBIN - TOTAL 1.89 mg/dL (0.2-1.3); CALCIUM 8.1 mg/dL (8.5-10.1); CARBON DIOXIDE 22.4 mmol/L (21.0-32.0); PROTEIN - SERUM 6.8 g/dL (6.4-8.2)
[2018-11-10 07:23] LABS: ANION GAP 16.8 mmol/L (8-16); CREATININE - SERUM 1.6 mg/dL (0.6-1.3)
[2018-11-10 07:29] LABS: POTASSIUM - SERUM 6.2 mmol/L (3.5-5.1)
[2018-11-10 12:38] LABS: ANION GAP 16.7 mmol/L (8-16); CALCIUM 7.9 mg/dL (8.5-10.1); CARBON DIOXIDE 22.9 mmol/L (21.0-32.0); CREATININE - SERUM 1.4 mg/dL (0.6-1.3); POTASSIUM - SERUM 5.6 mmol/L (3.5-5.1); VANCOMYCIN - RANDOM 12.5 ug/mL (10.0-20.0)
[2018-11-10 12:39] LABS: CKMB 6.4 U/L (0.0-3.6); CREATINE KINASE 1264 UL (21-232)
[2018-11-10 22:33] LABS: CREATININE - URINE 101.7 mg/dL (30-125); PRO/CRE RATIO URINE 0.7 mg/g; PROTEIN - URINE 71.6 mg/dL (0.0-11.9)
[2018-11-11] VITALS (26 sets, daily range): BP systolic 114–172; BP diastolic 61–83
[2018-11-11 06:04] LABS: INR 1.72 (0.85-1.17); PROTIME 19.6 SECONDS (11.6-15.0)
[2018-11-11 06:48] LABS: ALBUMIN 2.1 g/dL (3.4-5.0); BILIRUBIN - TOTAL 1.17 mg/dL (0.2-1.3); CALCIUM 8.4 mg/dL (8.5-10.1); CARBON DIOXIDE 25.6 mmol/L (21.0-32.0); CREATININE - SERUM 1.1 mg/dL (0.6-1.3); PROTEIN - SERUM 6.4 g/dL (6.4-8.2)
[2018-11-11 06:54] LABS: ANION GAP 13.1 mmol/L (8-16); POTASSIUM - SERUM 4.7 mmol/L (3.5-5.1)
[2018-11-11 07:34] LABS: HEMATOCRIT 29.9 % (42.0-54.0); HEMOGLOBIN 9.7 g/dL (13.5-17.5); IMMATURE GRANULOCYTES 2.3 % (0-5); MCH 30.4 pg (26.0-34.0); MCHC 32.4 g/dL (31.0-37.0); MCV 93.7 fL (80.0-100.0); MEAN PLATELET VOLUME 11.9 fL (7.4-10.4); RBC 3.19 10x6/uL (4.20-6.10); RDW 14.1 % (11.5-14.5)
[2018-11-11 07:46] LABS: PLATELET COUNT 70 10x3/uL (130-400); WBC 13.6 10x3/uL (4.8-10.8)
[2018-11-11 08:36] LABS: LYMPHOCYTES 14 % (15-50); MONOCYTES 2 % (2-11); NEUTROPHILS 83 % (40-80)
[2018-11-12] VITALS (24 sets, daily range): BP systolic 120–169; BP diastolic 50–77
[2018-11-12 06:44] LABS: APTT 96.5 SECONDS (22.8-39.4)
[2018-11-12 06:52] LABS: BASOPHILS 0.7 % (0-2); EOSINOPHILS 0.2 % (0-7); HEMATOCRIT 30.6 % (42.0-54.0); HEMOGLOBIN 9.7 g/dL (13.5-17.5); IMMATURE GRANULOCYTES 6.1 % (0-5); LYMPHOCYTES 9.1 % (15-50); MCH 30.1 pg (26.0-34.0); MCHC 31.7 g/dL (31.0-37.0); MEAN PLATELET VOLUME 12.1 fL (7.4-10.4); MONOCYTES 5.3 % (2-11); NEUTROPHILS 78.6 % (40-80); RBC 3.22 10x6/uL (4.20-6.10); RDW 14.4 % (11.5-14.5); WBC 14.2 10x3/uL (4.8-10.8)
[2018-11-12 06:58] LABS: PLATELET COUNT 87 10x3/uL (130-400)
[2018-11-12 07:02] LABS: ALBUMIN 1.9 g/dL (3.4-5.0); ALKALINE PHOSPHATASE 203 U/L (46-116); ALT (SGPT) 1271 U/L (10-68); BILIRUBIN - TOTAL 1.17 mg/dL (0.2-1.3); CALC OSMOLALITY 300 mosm/kg (275-300); CALCIUM 8.2 mg/dL (8.5-10.1); CARBON DIOXIDE 27.2 mmol/L (21.0-32.0); CHLORIDE - SERUM 110 mmol/L (98-107); CREATININE - SERUM 0.8 mg/dL (0.6-1.3); GLUCOSE 178 mg/dL (74-106); PHOSPHOROUS 2.4 mg/dL (2.5-4.9); POTASSIUM - SERUM 4.5 mmol/L (3.5-5.1); PROTEIN - SERUM 6.2 g/dL (6.4-8.2); SODIUM 145 mmol/L (136-145); UREA NITROGEN 35 mg/dL (7-18); eGFR NON AFRICAN AMERICAN > 90 mL/min (90-120)
[2018-11-12 07:04] LABS: INR 4.38 (0.85-1.17)
[2018-11-12 09:56] LABS: PLATELET ESTIMATE DECREASED
--- NOTE | 2018-11-12 16:36 | MORECARE ---
CASE MANAGEMENT DISCHARGE SUMMARY PATIENT: VICKI QUINN UNIT: [id number] ADM DATE: 11/04/18 AGE: 68 : 48 SEX: M ROOM/BED: D.[facility] AUTHOR: JACQUI,DOC PHYSICIAN: REFERRING PHYSICIAN: HEMALATHA SMITH M.D. DATE OF SERVICE: 11/12/18 Discharge Plan Patient Name: VICKI QUINN Facility: [facility]:[place] : 1950 Planned Disposition: Home Anticipated Discharge Date: Discharge Date: Expected LOS: Initial Reviewer: [email or web address] Initial Review Date: 11/04/2018 Generated: 11/12/18 5:36 pm Comments DCP- Discharge Planning Updated by [email or web address]: Michelle Cook on 11/12/18 3:[address] Patient's son is requesting Home Health upon discharge and he has spoken to Jin in [place]. Patient's PCP is Dr. Topher Abdi in [place] fax [phone]. CM will continue to follow and assist as needed with discharge planning / needs. DCP- Discharge Planning Updated by [id number]: Michelle Cook on 11/04/18 7:[address] Patient Name: VICKI QUINN Admission Status: ER Accout number: [id number] Admission Date: 11-04-2018 : 1950 Admission Diagnosis: Attending: HEMALATHA SMITH Current LOS: 1 Anticipated DC Date: Planned Disposition: Home Primary Insurance: [facility] MEDICARE SOLUTIONS Discharge Planning Comments: CM met with patient at bedside after explaining CM role and obtaining verbal consent. Patient lives at home with his ex- and plans to return there upon discharge. Patient feels this would be a safe discharge. CM discussed availability / needs of home health and medical equipment. Patient denies any discharge needs at this time. Patient states he will have his family drive him home upon discharge. CM will continue to follow and assist as needed with discharge planning / needs. Bead Supervisor: Michelle Cook DCPIA - Discharge Planning Initial Assessment Updated by [email or web address]: Michelle Cook on 11/04/18 8:00 pm * Is the patient Alert and Oriented? Yes * How many steps to enter\exit or inside your home? * PCP YOUNG * Pharmacy [facility] * Preadmission Environment Home with Family * ADLs Independent * Equipment Shower Chair * List name and contact numbers for known caregivers / representatives who currently or will assist patient after discharge: JOVANNA ENRIQUEZ- [place]- [phone] * Verbal permission to speak to the caregivers and representatives has been obtained from the patient. Yes * Community resources currently utilized None * Additional services required to return to the preadmission environment? No * Can the patient safely return to the preadmission environment? Yes * Has this patient been hospitalized within the prior 30 days at any hospital? No Last DP export: 11/04/18 7:07 p Patient Name: VICKI QUINN Page 24053 at 1636 All edits/amendments must be made on the electronic document DICTATION DATE: 11/12/181635 IRONING MACHINE OPERATOR: BHUPNIDER 11/12/18 163 RPT#: [id number] DC DATE: STATUS: ADM IN [facility] [address] [place] [address] END OF REPORT
[2018-11-13] VITALS (24 sets, daily range): BP systolic 122–175; BP diastolic 49–79
[2018-11-13 06:52] LABS: HEMOGLOBIN 8.9 g/dL (13.5-17.5); MCH 30.3 pg (26.0-34.0); MCHC 31.8 g/dL (31.0-37.0); MCV 95.2 fL (80.0-100.0); MEAN PLATELET VOLUME 11.7 fL (7.4-10.4); RBC 2.94 10x6/uL (4.20-6.10); RDW 14.6 % (11.5-14.5); WBC 11.3 10x3/uL (4.8-10.8)
[2018-11-13 06:56] LABS: PLATELET COUNT 95 10x3/uL (130-400)
[2018-11-13 07:00] LABS: INR 3.84 (0.85-1.17); PROTIME 36.9 SECONDS (11.6-15.0)
[2018-11-13 07:01] LABS: APTT 96.5 SECONDS (22.8-39.4)
[2018-11-13 07:14] LABS: ALBUMIN 1.8 g/dL (3.4-5.0); ALKALINE PHOSPHATASE 171 U/L (46-116); CALCIUM 7.7 mg/dL (8.5-10.1); CARBON DIOXIDE 26.5 mmol/L (21.0-32.0); CHLORIDE - SERUM 110 mmol/L (98-107); CREATININE - SERUM 0.7 mg/dL (0.6-1.3); GLUCOSE 154 mg/dL (74-106); PHOSPHOROUS 2.4 mg/dL (2.5-4.9); PROTEIN - SERUM 5.7 g/dL (6.4-8.2); SODIUM 144 mmol/L (136-145); eGFR NON AFRICAN AMERICAN > 90 mL/min (90-120)
[2018-11-13 07:18] LABS: ANISOCYTOSIS 1+; LYMPHOCYTES 16 % (15-50); MONOCYTES 1 % (2-11); NEUTROPHILS 78 % (40-80); PLATELET ESTIMATE DECREASED
[2018-11-13 07:20] LABS: ALT (SGPT) 897 U/L (10-68); CALC OSMOLALITY 293 mosm/kg (275-300); POTASSIUM - SERUM 3.8 mmol/L (3.5-5.1); UREA NITROGEN 25 mg/dL (7-18)
[2018-11-13 13:05] LABS: % SATURATION 22 % (15-55); IRON 30 ug/dl (35-150); TOTAL IRON BIND CAPACITY 131 ug/dl (260-445); UNSAT IRON BIND CAPACITY 101 ug/dl (150-375)
[2018-11-14] VITALS (23 sets, daily range): BP systolic 139–169; BP diastolic 56–88
[2018-11-14 06:43] LABS: BASOPHILS 0.9 % (0-2); HEMATOCRIT 29.1 % (42.0-54.0); HEMOGLOBIN 9.1 g/dL (13.5-17.5); IMMATURE GRANULOCYTES 7.3 % (0-5); LYMPHOCYTES 14.4 % (15-50); MCH 29.7 pg (26.0-34.0); MCHC 31.3 g/dL (31.0-37.0); MCV 95.1 fL (80.0-100.0); MEAN PLATELET VOLUME 11.9 fL (7.4-10.4); NEUTROPHILS 69.4 % (40-80); PLATELET COUNT 102 10x3/uL (130-400); RBC 3.06 10x6/uL (4.20-6.10); RDW 14.8 % (11.5-14.5); WBC 9.8 10x3/uL (4.8-10.8)
[2018-11-14 06:44] LABS: ALBUMIN 1.8 g/dL (3.4-5.0); ALKALINE PHOSPHATASE 151 U/L (46-116); ALT (SGPT) 680 U/L (10-68); BILIRUBIN - TOTAL 0.98 mg/dL (0.2-1.3); CALCIUM 7.6 mg/dL (8.5-10.1); CARBON DIOXIDE 27.1 mmol/L (21.0-32.0); CHLORIDE - SERUM 110 mmol/L (98-107); CREATININE - SERUM 0.7 mg/dL (0.6-1.3); GLUCOSE 138 mg/dL (74-106); POTASSIUM - SERUM 3.5 mmol/L (3.5-5.1); PROTEIN - SERUM 5.6 g/dL (6.4-8.2); SODIUM 143 mmol/L (136-145); eGFR NON AFRICAN AMERICAN > 90 mL/min (90-120)
[2018-11-14 06:46] LABS: CALC OSMOLALITY 288 mosm/kg (275-300); PHOSPHOROUS 3.1 mg/dL (2.5-4.9); UREA NITROGEN 17 mg/dL (7-18)
[2018-11-14 06:58] LABS: PROTIME 30.9 SECONDS (11.6-15.0)
[2018-11-14 07:02] LABS: APTT 70.7 SECONDS (22.8-39.4); INR 3.07 (0.85-1.17)
[2018-11-14 16:22] LABS: PROTIME 25.7 SECONDS (11.6-15.0)
[2018-11-14 16:31] LABS: APTT 52.3 SECONDS (22.8-39.4); INR 2.43 (0.85-1.17)
[2018-11-15] VITALS (24 sets, daily range): BP systolic 125–177; BP diastolic 45–114
[2018-11-15 05:49] LABS: HEMATOCRIT 29.1 % (42.0-54.0); HEMOGLOBIN 9.4 g/dL (13.5-17.5); MCH 30.2 pg (26.0-34.0); MCHC 32.3 g/dL (31.0-37.0); MCV 93.6 fL (80.0-100.0); MEAN PLATELET VOLUME 11.4 fL (7.4-10.4); PLATELET COUNT 153 10x3/uL (130-400); RBC 3.11 10x6/uL (4.20-6.10); RDW 14.8 % (11.5-14.5); WBC 10.2 10x3/uL (4.8-10.8)
[2018-11-15 06:06] LABS: ALBUMIN 1.9 g/dL (3.4-5.0); ALKALINE PHOSPHATASE 151 U/L (46-116); ALT (SGPT) 542 U/L (10-68); BILIRUBIN - TOTAL 0.85 mg/dL (0.2-1.3); CARBON DIOXIDE 29.5 mmol/L (21.0-32.0); CHLORIDE - SERUM 105 mmol/L (98-107); CREATININE - SERUM 0.8 mg/dL (0.6-1.3); PHOSPHOROUS 2.9 mg/dL (2.5-4.9); PROTEIN - SERUM 6.3 g/dL (6.4-8.2); SODIUM 140 mmol/L (136-145); UREA NITROGEN 19 mg/dL (7-18); eGFR NON AFRICAN AMERICAN > 90 mL/min (90-120)
[2018-11-15 06:08] LABS: CALC OSMOLALITY 285 mosm/kg (275-300); GLUCOSE 188 mg/dL (74-106); POTASSIUM - SERUM 4.2 mmol/L (3.5-5.1)
[2018-11-15 08:43] LABS: INR 2.51 (0.85-1.17); PROTIME 26.3 SECONDS (11.6-15.0)
[2018-11-15 08:44] LABS: APTT 91.4 SECONDS (22.8-39.4)
[2018-11-15 08:47] LABS: LYMPHOCYTES 8 % (15-50); MONOCYTES 2 % (2-11); NEUTROPHILS 87 % (40-80); PLATELET ESTIMATE NORMAL
[2018-11-16] VITALS (24 sets, daily range): BP systolic 138–164; BP diastolic 38–79
[2018-11-16 07:53] LABS: ALBUMIN 2.2 g/dL (3.4-5.0); ALKALINE PHOSPHATASE 148 U/L (46-116); BILIRUBIN - TOTAL 0.79 mg/dL (0.2-1.3); C-REACTIVE PROTEIN 4.3 mg/dL (0.0-0.9); CALC OSMOLALITY 289 mosm/kg (275-300); CALCIUM 8.2 mg/dL (8.5-10.1); CARBON DIOXIDE 30.1 mmol/L (21.0-32.0); CHLORIDE - SERUM 103 mmol/L (98-107); CREATININE - SERUM 0.9 mg/dL (0.6-1.3); GLUCOSE 235 mg/dL (74-106); POTASSIUM - SERUM 4.7 mmol/L (3.5-5.1); PROTEIN - SERUM 6.8 g/dL (6.4-8.2); SODIUM 140 mmol/L (136-145); UREA NITROGEN 21 mg/dL (7-18); eGFR NON AFRICAN AMERICAN 89 mL/min (90-120)
[2018-11-16 07:54] LABS: ALT (SGPT) 400 U/L (10-68)
[2018-11-16 08:00] LABS: INR 2.16 (0.85-1.17); PROTIME 23.4 SECONDS (11.6-15.0)
[2018-11-16 08:05] LABS: APTT 57.4 SECONDS (22.8-39.4)
--- NOTE | 2018-11-16 17:59 | MORECARE ---
CASE MANAGEMENT DISCHARGE SUMMARY PATIENT: VICKI QUINN UNIT: [id number] ADM DATE: 11/04/18 AGE: 68 : 48 SEX: M ROOM/BED: D[facility] AUTHOR: JACQUI,DOC PHYSICIAN: REFERRING PHYSICIAN: HEMALATHA SMITH M.D. DATE OF SERVICE: 11/16/18 Discharge Plan Patient Name: VICKI QUINN Facility: [facility]:[place] : 1950 Planned Disposition: Inpatient Rehab Anticipated Discharge Date: Discharge Date: Expected LOS: Initial Reviewer: [email or web address] Initial Review Date: 11/04/2018 Generated: 11/16/18 6:58 pm Comments DCP- Discharge Planning Updated by [email or web address]: Michelle Cook on 11/16/18 4:[address] CM spoke with patient and daughter Ailin regarding request for inpatient rehab. Ailin requested for patient to go to inpatient rehab closer to home. AGGIE signed. CM will send records to [facility] in [place]. CM explained that d/t patent insurance it will require an auth and that usually takes up to 3 days. CM will continue to follow and assist as needed with discharge planning / needs. DCP- Discharge Planning Updated by [email or web address]: Michelle Cook on 11/12/18 3:[address] Patient's son is requesting Home Health upon discharge and he has spoken to Jin HEDRICK in [place]. Patient's PCP is Dr. Topher Abdi in [place] fax [phone]. CM will continue to follow and assist as needed with discharge planning / needs. DCP- Discharge Planning Updated by [email or web address]: Michelle Cook on 11/04/18 7:[address] Patient Name: VICKI QUINN Admission Status: ER Accout number: [id number] Admission Date: 11-04-2018 : 1950 Admission Diagnosis: Attending: HEMALATHA SMITH Current LOS: 1 Anticipated DC Date: Planned Disposition: Home Primary Insurance: [facility] MEDICARE SOLUTIONS Discharge Planning Comments: CM met with patient at bedside after explaining CM role and obtaining verbal consent. Patient lives at home with his ex- and plans to return there upon discharge. Patient feels this would be a safe discharge. CM discussed availability / needs of home health and medical equipment. Patient denies any discharge needs at this time. Patient states he will have his family drive him home upon discharge. CM will continue to follow and assist as needed with discharge planning / needs. Advertising Agency Manager: Michelle Cook DCPIA - Discharge Planning Initial Assessment Updated by [email or web address]: Michelle Cook on 11/04/18 8:00 pm * Is the patient Alert and Oriented? Yes * How many steps to enter\exit or inside your home? * PCP YOUNG * [facility]acy [facility] * Preadmission Environment Home with Family * ADLs Independent * Equipment Shower Chair * List name and contact numbers for known caregivers / representatives who currently or will assist patient after discharge: AILIN ENRIQUEZ- DAUGHTER- [phone] * Verbal permission to speak to the caregivers and representatives has been obtained from the patient. Yes * Community resources currently utilized None * Additional services required to return to the preadmission environment? No * Can the patient safely return to the preadmission environment? Yes * Has this patient been hospitalized within the prior 30 days at any hospital? No Coverage Notice Reviewer: [id number] - Michelle Cook Notice Issued Date-Time: 11/16/2018 17:54 Notice Type: Patient Choice Letter Notice Delivered To: Patient Relationship to Patient: Self Furniture Duster Name: Delivery Method: HAND - Hand Delivered Genna Days: Prior Verbal Notification: Recipient Understood Notice: Yes Recipient Signature: Yes Med Rec Note Co-signed by Attending: Coverage Notice Comment: Last DP export: 11/12/18 3:36 p Patient Name: VICKI QUINN Page 35521 at 1759 All edits/amendments must be made on the electronic document DICTATION DATE: 11/16/181757 GI ASST: BHUPINDER 11/16/181757 RPT#: [id number] SD DATE: STATUS: ADM IN [facility] [address] [place] [address] END OF REPORT
[2018-11-17] VITALS (25 sets, daily range): BP systolic 117–163; BP diastolic 51–82
--- NOTE | 2018-11-17 09:39 | MORECARE ---
CASE MANAGEMENT DISCHARGE SUMMARY PATIENT: VICKI QUINN UNIT: [id number] ADM DATE: 11/04/18 AGE: 68 : 48 SEX: M ROOM/BED: D[facility] AUTHOR: JACQUI,DOC PHYSICIAN: REFERRING PHYSICIAN: HEMALATHA SMITH M.D. DATE OF SERVICE: 11/17/18 Discharge Plan Patient Name: VICKI QUINN Facility: [facility]:[place] : 1950 Planned Disposition: Inpatient Rehab Anticipated Discharge Date: Discharge Date: Expected LOS: Initial Reviewer: [email or web address] Initial Review Date: 11/04/2018 Generated: 11/17/18 10:39 am Comments DCP- Discharge Planning Updated by [email or web address]: Michelle Cook on 11/16/18 4:[address] CM spoke with patient and daughter Ailin regarding request for inpatient rehab. Ailin requested for patient to go to inpatient rehab closer to home. AGGIE signed. CM will send records to [facility] in [place]. CM explained that d/t patent insurance it will require an auth and that usually takes up to 3 days. CM will continue to follow and assist as needed with discharge planning / needs. DCP- Discharge Planning Updated by [email or web address]: Michelle Cook on 11/12/18 3:[address] Patient's son is requesting Home Health upon discharge and he has spoken to Jin HEDRICK in [place]. Patient's PCP is Dr. Topher Abdi in [place] fax [phone]. CM will continue to follow and assist as needed with discharge planning / needs. DCP- Discharge Planning Updated by [email or web address]: Michelle Cook on 11/04/18 7:[address] Patient Name: VICKI QUINN Admission Status: ER Accout number: [id number] Admission Date: 11-04-2018 : 1950 Admission Diagnosis: Attending: HEMALATHA SMITH Current LOS: 1 Anticipated DC Date: Planned Disposition: Home Primary Insurance: [facility] MEDICARE SOLUTIONS Discharge Planning Comments: CM met with patient at bedside after explaining CM role and obtaining verbal consent. Patient lives at home with his ex- and plans to return there upon discharge. Patient feels this would be a safe discharge. CM discussed availability / needs of home health and medical equipment. Patient denies any discharge needs at this time. Patient states he will have his family drive him home upon discharge. CM will continue to follow and assist as needed with discharge planning / needs. Inset Cutter: Michelle Bassettyon ORNELASPIA - Discharge Planning Initial Assessment Updated by [email or web address]: Michelle Cook on 11/04/18 8:00 pm * Is the patient Alert and Oriented? Yes * How many steps to enter\exit or inside your home? * PCP YOUNG * [facility]acy [facility] * Preadmission Environment Home with Family * ADLs Independent * Equipment Shower Chair * List name and contact numbers for known caregivers / representatives who currently or will assist patient after discharge: AILIN ENRIQUEZ- SHEILA- [phone] * Verbal permission to speak to the caregivers and representatives has been obtained from the patient. Yes * Community resources currently utilized None * Additional services required to return to the preadmission environment? No * Can the patient safely return to the preadmission environment? Yes * Has this patient been hospitalized within the prior 30 days at any hospital? No External Providers External Provider: OTHER-OTHER Next Contact Date: Service Request Date: Service Type: Resolution: Reviewer: Comments: Coverage Notice Reviewer: [id number] - Michelle Cook Notice Issued Date-Time: 11/16/2018 17:54 Notice Type: Patient Choice Letter Notice Delivered To: Patient Relationship to Patient: Self Reading Professor Name: Delivery Method: HAND - Hand Delivered Genna Days: Prior Verbal Notification: Recipient Understood Notice: Yes Recipient Signature: Yes Med Rec Note Co-signed by Attending: Coverage Notice Comment: Last DP export: 11/16/18 4:59 p Patient Name: VICKI QUINN Page 38782 at 0939 All edits/amendments must be made on the electronic document DICTATION DATE: 11/17/18937 GENERAL CONTRACTOR: BHUPINDER 11/17/18937 RPT#: [id number] DC DATE: STATUS: ADM IN [facility] [address] [place] [address] END OF REPORT
--- NOTE | 2018-11-17 09:46 | MORECARE ---
CASE MANAGEMENT DISCHARGE SUMMARY PATIENT: VICKI QUINN UNIT: [id number] ADM DATE: 11/04/18 AGE: 68 : 48 SEX: M ROOM/BED: D[facility] AUTHOR: JACQUI,DOC PHYSICIAN: REFERRING PHYSICIAN: HEMALATHA SMITH M.D. DATE OF SERVICE: 11/17/18 Discharge Plan Patient Name: VICKI QUINN Facility: [facility]:[place] : 1950 Planned Disposition: Inpatient Rehab Anticipated Discharge Date: Discharge Date: Expected LOS: Initial Reviewer: [email or web address] Initial Review Date: 11/04/2018 Generated: 11/17/18 10:46 am Comments DCP- Discharge Planning Updated by [id number]: Michelle Cook on 11/16/18 4:[address] CM spoke with patient and daughter Ailin regarding request for inpatient rehab. Ailin requested for patient to go to inpatient rehab closer to home. AGGIE signed. CM will send records to [facility] in [place]. CM explained that d/t patent insurance it will require an auth and that usually takes up to 3 days. CM will continue to follow and assist as needed with discharge planning / needs. DCP- Discharge Planning Updated by [email or web address]: Michelle Cook on 11/12/18 3:[address] Patient's son is requesting Home Health upon discharge and he has spoken to Jin HEDRICK in [place]. Patient's PCP is Dr. Topher Abdi in [place] fax [phone]. CM will continue to follow and assist as needed with discharge planning / needs. DCP- Discharge Planning Updated by [email or web address]: Michelle Cook on 11/04/18 7:[address] Patient Name: VICKI QUINN Admission Status: ER Accout number: [id number] Admission Date: 11-04-2018 : 1950 Admission Diagnosis: Attending: HEMALATHA SMITH Current LOS: 1 Anticipated DC Date: Planned Disposition: Home Primary Insurance: [facility] MEDICARE SOLUTIONS Discharge Planning Comments: CM met with patient at bedside after explaining CM role and obtaining verbal consent. Patient lives at home with his ex- and plans to return there upon discharge. Patient feels this would be a safe discharge. CM discussed availability / needs of home health and medical equipment. Patient denies any discharge needs at this time. Patient states he will have his family drive him home upon discharge. CM will continue to follow and assist as needed with discharge planning / needs. Marketing Development Representative: Michelle Cook DCPIA - Discharge Planning Initial Assessment Updated by [email or web address]: Michelle Cook on 11/04/18 8:00 pm * Is the patient Alert and Oriented? Yes * How many steps to enter\exit or inside your home? * PCP YOUNG * Pharmacy [facility] * Preadmission Environment Home with Family * ADLs Independent * Equipment Shower Chair * List name and contact numbers for known caregivers / representatives who currently or will assist patient after discharge: AILIN ENRIQUEZ- DAUGHTER- [phone] * Verbal permission to speak to the caregivers and representatives has been obtained from the patient. Yes * Community resources currently utilized None * Additional services required to return to the preadmission environment? No * Can the patient safely return to the preadmission environment? Yes * Has this patient been hospitalized within the prior 30 days at any hospital? No Coverage Notice Reviewer: [id number] - Michelle Cook Notice Issued Date-Time: 11/16/2018 17:54 Notice Type: Patient Choice Letter Notice Delivered To: Patient Relationship to Patient: Self Outsole Handler Name: Delivery Method: HAND - Hand Delivered Genna Days: Prior Verbal Notification: Recipient Understood Notice: Yes Recipient Signature: Yes Med Rec Note Co-signed by Attending: Coverage Notice Comment: Last DP export: 11/17/18 8:39 a Patient Name: VICKI QUINN Page [id number] at 0946 All edits/amendments must be made on the electronic document DICTATION DATE: 11/17/18945 FACILITIES MAINTENANCE MANAGER: BHUPINDER 11/17/18945 RPT#: [id number] DC DATE: STATUS: ADM IN [facility] [address] [place] [address] END OF REPORT
[2018-11-17 10:49] LABS: BASOPHILS 0.1 % (0-2); EOSINOPHILS 0.3 % (0-7); HEMATOCRIT 32.4 % (42.0-54.0); HEMOGLOBIN 10.2 g/dL (13.5-17.5); LYMPHOCYTES 5.9 % (15-50); MCH 29.9 pg (26.0-34.0); MCHC 31.5 g/dL (31.0-37.0); MEAN PLATELET VOLUME 10.9 fL (7.4-10.4); MONOCYTES 6.4 % (2-11); NEUTROPHILS 86.3 % (40-80); PLATELET COUNT 213 10x3/uL (130-400); RBC 3.41 10x6/uL (4.20-6.10); RDW 15.8 % (11.5-14.5); WBC 12.9 10x3/uL (4.8-10.8)
[2018-11-17 11:05] LABS: ALBUMIN 2.2 g/dL (3.4-5.0); ALKALINE PHOSPHATASE 136 U/L (46-116); BILIRUBIN - TOTAL 0.67 mg/dL (0.2-1.3); CALC OSMOLALITY 281 mosm/kg (275-300); CARBON DIOXIDE 27.9 mmol/L (21.0-32.0); CHLORIDE - SERUM 101 mmol/L (98-107); CREATININE - SERUM 0.8 mg/dL (0.6-1.3); GLUCOSE 282 mg/dL (74-106); POTASSIUM - SERUM 4.7 mmol/L (3.5-5.1); PROTEIN - SERUM 6.3 g/dL (6.4-8.2); SODIUM 134 mmol/L (136-145); UREA NITROGEN 23 mg/dL (7-18); eGFR NON AFRICAN AMERICAN > 90 mL/min (90-120)
[2018-11-17 11:09] LABS: ALT (SGPT) 258 U/L (10-68)
--- NOTE | 2018-11-17 17:37 | MORECARE ---
CASE MANAGEMENT DISCHARGE SUMMARY PATIENT: VICKI QUINN UNIT: [id number] ADM DATE: 11/04/18 AGE: 68 : 48 SEX: M ROOM[facility]BED: [facility] AUTHOR: JACQUI,DOC PHYSICIAN: REFERRING PHYSICIAN: HEMALATHA SMITH M.D. DATE OF SERVICE: 11/17/18 Discharge Plan Patient Name: VICKI QUINN Facility: [facility]:[place] : 1950 Planned Disposition: Inpatient Rehab Anticipated Discharge Date: Discharge Date: Expected LOS: Initial Reviewer: [email or web address] Initial Review Date: 11/04/2018 Generated: 11/17/18 6:37 pm Comments DCP- Discharge Planning Updated by [email or web address]: Michelle Cook on 11/17/18 4:[address] CM spoke with Dr. Allan he requested for patient to stay here and go to Inpatient rehab here @ [facility]. CM spoke with patient and daughter regarding physician's request. They all agree to Inpatient rehab @ [facility]. CM called and left message with Maria Esther in Rehab that patient is willing to go to [facility] rehab. Records have been faxed to [facility] for auth awaiting determination. CM will continue to follow and assist as needed with discharge planning / needs. DCP- Discharge Planning Updated by [email or web address]: Michelle Cook on 11/16/18 4:[address] CM spoke with patient and daughter Ailin regarding request for inpatient rehab. Ailin requested for patient to go to inpatient rehab closer to home. AGGIE signed. CM will send records to [facility] in [place]. CM explained that d/t patent insurance it will require an auth and that usually takes up to 3 days. CM will continue to follow and assist as needed with discharge planning / needs. DCP- Discharge Planning Updated by [email or web address]: Michelle Cook on 11/12/18 3:[address] Patient's son is requesting Home Health upon discharge and he has spoken to Jin HEDRICK in [place]. Patient's PCP is Dr. Topher HEDRICK in [place] fax [phone]. CM will continue to follow and assist as needed with discharge planning / needs. DCP- Discharge Planning Updated by [email or web address]: Michelle Cook on 11/04/18 7:[address] Patient Name: VICKI QUINN Admission Status: ER Accout number: [id number] Admission Date: 11-04-2018 : 1950 Admission Diagnosis: Attending: HEMALATHA SMITH Current LOS: 1 Anticipated DC Date: Planned Disposition: Home Primary Insurance: [facility] MEDICARE SOLUTIONS Discharge Planning Comments: CM met with patient at bedside after explaining CM role and obtaining verbal consent. Patient lives at home with his ex- and plans to return there upon discharge. Patient feels this would be a safe discharge. CM discussed availability / needs of home health and medical equipment. Patient denies any discharge needs at this time. Patient states he will have his family drive him home upon discharge. CM will continue to follow and assist as needed with discharge planning / needs. Tooling Specialist: Michelle Cook DCPIA - Discharge Planning Initial Assessment Updated by [email or web address]: Michelle Cook on 11/04/18 8:00 pm * Is the patient Alert and Oriented? Yes * How many steps to enter\exit or inside your home? * PCP YOUNG * [facility]acy [facility] * Preadmission Environment Home with Family * ADLs Independent * Equipment Shower Chair * List name and contact numbers for known caregivers / representatives who currently or will assist patient after discharge: AILIN ENRIQUEZ- [facility]- [phone] * Verbal permission to speak to the caregivers and representatives has been obtained from the patient. Yes * Community resources currently utilized None * Additional services required to return to the preadmission environment? No * Can the patient safely return to the preadmission environment? Yes * Has this patient been hospitalized within the prior 30 days at any hospital? No Coverage Notice Reviewer: [id number] - Michelle Cook Notice Issued Date-Time: 11/16/2018 17:54 Notice Type: Patient Choice Letter Notice Delivered To: Patient Relationship to Patient: Self Visual Inspector Name: Delivery Method: HAND - Hand Delivered Genna Days: Prior Verbal Notification: Recipient Understood Notice: Yes Recipient Signature: Yes Med Rec Note Co-signed by Attending: Coverage Notice Comment: Last DP export: 11/17/18 8:46 a Patient Name: VICKI QUINN Page [id number] at 1737 All edits/amendments must be made on the electronic document DICTATION DATE: 11/17/181735 GLASSWORKER: BHUPINDER 11/17/181735 RPT#: [id number] DC DATE: STATUS: ADM IN [facility] [address] [place] [address] END OF REPORT
[2018-11-18] VITALS (24 sets, daily range): BP systolic 109–148; BP diastolic 51–87
[2018-11-18 04:36] LABS: BASOPHILS 0.3 % (0-2); EOSINOPHILS 0.2 % (0-7); HEMATOCRIT 32.3 % (42.0-54.0); HEMOGLOBIN 10.3 g/dL (13.5-17.5); LYMPHOCYTES 8.8 % (15-50); MCH 29.9 pg (26.0-34.0); MCHC 31.9 g/dL (31.0-37.0); MCV 93.9 fL (80.0-100.0); MEAN PLATELET VOLUME 10.9 fL (7.4-10.4); NEUTROPHILS 84.7 % (40-80); PLATELET COUNT 217 10x3/uL (130-400); RBC 3.44 10x6/uL (4.20-6.10); RDW 15.3 % (11.5-14.5); WBC 10.9 10x3/uL (4.8-10.8)
[2018-11-18 04:59] LABS: ALBUMIN 2.2 g/dL (3.4-5.0); ALKALINE PHOSPHATASE 120 U/L (46-116); ALT (SGPT) 199 U/L (10-68); CARBON DIOXIDE 31.2 mmol/L (21.0-32.0); CHLORIDE - SERUM 102 mmol/L (98-107); CREATININE - SERUM 0.8 mg/dL (0.6-1.3); POTASSIUM - SERUM 5.1 mmol/L (3.5-5.1); PROTEIN - SERUM 6.1 g/dL (6.4-8.2); SODIUM 136 mmol/L (136-145); UREA NITROGEN 26 mg/dL (7-18); eGFR NON AFRICAN AMERICAN > 90 mL/min (90-120)
[2018-11-18 05:01] LABS: CALC OSMOLALITY 282 mosm/kg (275-300); GLUCOSE 209 mg/dL (74-106)
[2018-11-18 09:24] LABS: INR 1.16 (0.85-1.17); PROTIME 14.3 SECONDS (11.6-15.0)
--- NOTE | 2018-11-18 15:56 | MORECARE ---
CASE MANAGEMENT DISCHARGE SUMMARY PATIENT: VICKI QUINN UNIT: [id number] ADM DATE: 11/04/18 AGE: 68 : 48 SEX: M ROOM/BED: D.[facility] AUTHOR: JACQUI,DOC PHYSICIAN: REFERRING PHYSICIAN: HEMALATHA SMITH M.D. DATE OF SERVICE: 11/18/18 Discharge Plan Patient Name: VICKI QUINN Facility: [facility]:[place] : 1950 Planned Disposition: Inpatient Rehab Anticipated Discharge Date: Discharge Date: Expected LOS: Initial Reviewer: [email or web address] Initial Review Date: 11/04/2018 Generated: 11/18/18 4:56 pm Comments DCP- Discharge Planning Updated by [id number]: Michelle Cook on 11/18/18 2:[address] CM received notice that patient was denied Inpatient Rehab stated patient could have SNF rehab. CM spoke with Dr. Moreno and he has agreed to do P2P. CM called [phone] Marlene Dong and left message that we would like to set up P2P for [id number]. CM awaiting response from Marlene @ [facility]. DCP- Discharge Planning Updated by [id number]: Michelle Cook on 11/17/18 4:[address] CM spoke with Dr. Allan he requested for patient to stay here and go to Inpatient rehab here @ [facility]. CM spoke with patient and daughter regarding physician's request. They all agree to Inpatient rehab @ [facility]. CM called and left message with Maria Esther in Rehab that patient is willing to go to [facility] rehab. Records have been faxed to [facility] for auth awaiting determination. CM will continue to follow and assist as needed with discharge planning / needs. DCP- Discharge Planning Updated by [id number]: Michelle Cook on 11/16/18 4:[address] CM spoke with patient and daughter Ailin regarding request for inpatient rehab. Ailin requested for patient to go to inpatient rehab closer to home. AGGIE signed. CM will send records to [facility] in [place]. CM explained that d/t patent insurance it will require an auth and that usually takes up to 3 days. CM will continue to follow and assist as needed with discharge planning / needs. DCP- Discharge Planning Updated by [email or web address]: Michelle Cook on 11/12/18 3:[address] Patient's son is requesting Home Health upon discharge and he has spoken to Jin HEDRICK in [place]. Patient's PCP is Dr. Topher Abdi [facility] fax [phone]. CM will continue to follow and assist as needed with discharge planning / needs. DCP- Discharge Planning Updated by [id number]: Michelle Cook on 11/04/18 7:[address] Patient Name: VICKI QUINN Admission Status: ER Accout number: [id number] Admission Date: 11-04-2018 : 1950 Admission Diagnosis: Attending: HEMALATHA SMITH Current LOS: 1 Anticipated DC Date: Planned Disposition: Home Primary Insurance: [facility] MEDICARE [employer]UTIONS Discharge Planning Comments: CM met with patient at bedside after explaining CM role and obtaining verbal consent. Patient lives at home with his ex- and plans to return there upon discharge. Patient feels this would be a safe discharge. CM discussed availability / needs of home health and medical equipment. Patient denies any discharge needs at this time. Patient states he will have his family drive him home upon discharge. CM will continue to follow and assist as needed with discharge planning / needs. Relief Mate: Michelle Cook DCPIA - Discharge Planning Initial Assessment Updated by [email or web address]: Michelle Cook on 11/04/18 8:00 pm * Is the patient Alert and Oriented? Yes * How many steps to enter\exit or inside your home? * PCP TOPHER * Pharmacy [facility] * Preadmission Environment Home with Family * ADLs Independent * Equipment Shower Chair * List name and contact numbers for known caregivers / representatives who currently or will assist patient after discharge: AILIN ENRIQUEZ- DAUGHTER- [phone] * Verbal permission to speak to the caregivers and representatives has been obtained from the patient. Yes * Community resources currently utilized None * Additional services required to return to the preadmission environment? No * Can the patient safely return to the preadmission environment? Yes * Has this patient been hospitalized within the prior 30 days at any hospital? No Coverage Notice Reviewer: [id number] Usama Cook Notice Issued Date-Time: 11/16/2018 17:54 Notice Type: Patient Choice Letter Notice Delivered To: Patient Relationship to Patient: Self Preventive Medicine Officer Name: Delivery Method: HAND - Hand Delivered Genna Days: Prior Verbal Notification: Recipient Understood Notice: Yes Recipient Signature: Yes Med Rec Note Co-signed by Attending: Coverage Notice Comment: Last DP export: 11/17/18 4:37 p Patient Name: VICKI QUINN Page [id number] at 1556 All edits/amendments must be made on the electronic document DICTATION DATE: 11/18/18 1556 UNDERWRITING ANALYST: BHUPINDER 11/18/18 1556 RPT#: [id number] DC DATE: STATUS: ADM IN [facility] [address] [place] [address] END OF REPORT
[2018-11-19] VITALS (24 sets, daily range): BP systolic 100–163; BP diastolic 51–91
[2018-11-19 05:14] LABS: BASOPHILS 0.1 % (0-2); EOSINOPHILS 0.1 % (0-7); HEMATOCRIT 33.1 % (42.0-54.0); HEMOGLOBIN 10.7 g/dL (13.5-17.5); IMMATURE GRANULOCYTES 0.8 % (0-5); LYMPHOCYTES 10.6 % (15-50); MCH 30.3 pg (26.0-34.0); MCHC 32.3 g/dL (31.0-37.0); MCV 93.8 fL (80.0-100.0); MEAN PLATELET VOLUME 10.3 fL (7.4-10.4); MONOCYTES 4.5 % (2-11); NEUTROPHILS 83.9 % (40-80); PLATELET COUNT 224 10x3/uL (130-400); RBC 3.53 10x6/uL (4.20-6.10); RDW 15.5 % (11.5-14.5); WBC 11.3 10x3/uL (4.8-10.8)
[2018-11-19 05:16] LABS: CALC OSMOLALITY 284 mosm/kg (275-300); CARBON DIOXIDE 33.2 mmol/L (21.0-32.0); CHLORIDE - SERUM 100 mmol/L (98-107); CREATININE - SERUM 0.8 mg/dL (0.6-1.3); GLUCOSE 203 mg/dL (74-106); POTASSIUM - SERUM 5.1 mmol/L (3.5-5.1); SODIUM 137 mmol/L (136-145); UREA NITROGEN 26 mg/dL (7-18); eGFR NON AFRICAN AMERICAN > 90 mL/min (90-120)
[2018-11-19 09:15] LABS: INR 1.13 (0.85-1.17)
--- NOTE | 2018-11-19 17:41 | MORECARE ---
CASE MANAGEMENT DISCHARGE SUMMARY PATIENT: VICKI QUINN UNIT: [id number] ADM DATE: 11/04/18 AGE: 68 : 48 SEX: M ROOM/BED: D[facility] AUTHOR: JACQUI,DOC PHYSICIAN: REFERRING PHYSICIAN: HEMALATHA SMITH M.D. DATE OF SERVICE: 11/19/18 Discharge Plan Patient Name: VICKI QUINN Facility: [facility]:[place] : 1950 Planned Disposition: Inpatient Rehab Anticipated Discharge Date: Discharge Date: Expected LOS: Initial Reviewer: [email or web address] Initial Review Date: 11/04/2018 Generated: 11/19/18 6:41 pm Comments DCP- Discharge Planning Updated by [id number]: Michelle Cook on 11/18/18 2:[address] CM received notice that patient was denied Inpatient Rehab stated patient could have SNF rehab. CM spoke with Dr. Moreno and he has agreed to do P2P. CM called [phone] Marlene Dong and left message that we would like to set up P2P for [id number]. CM awaiting response from Marlene @ [facility]. DCP- Discharge Planning Updated by [email or web address]: Michelle Cook on 11/17/18 4:[address] CM spoke with Dr. Allan he requested for patient to stay here and go to Inpatient rehab here @ [facility]. CM spoke with patient and daughter regarding physician's request. They all agree to Inpatient rehab @ [facility]. CM called and left message with Maria Esther in Rehab that patient is willing to go to [facility] rehab. Records have been faxed to [facility] for auth awaiting determination. CM will continue to follow and assist as needed with discharge planning / needs. DCP- Discharge Planning Updated by [id number]: Michelle Cook on 11/16/18 4:[address] CM spoke with patient and daughter Ailin regarding request for inpatient rehab. Ailin requested for patient to go to inpatient rehab closer to home. AGGIE signed. CM will send records to [facility] in [place]. CM explained that d/t patent insurance it will require an auth and that usually takes up to 3 days. CM will continue to follow and assist as needed with discharge planning / needs. DCP- Discharge Planning Updated by [email or web address]: Michelle Cook on 11/12/18 3:[address] Patient's son is requesting Home Health upon discharge and he has spoken to Jin HEDRICK in [place]. Patient's PCP is Dr. Topher Abdi in [place] fax [phone]. CM will continue to follow and assist as needed with discharge planning / needs. DCP- Discharge Planning Updated by [id number]: Michelle Cook on 11/04/18 7:[address] Patient Name: VICKI QUINN Admission Status: ER Accout number: [id number] Admission Date: 11-04-2018 : 1950 Admission Diagnosis: Attending: HEMALATHA SMITH Current LOS: 1 Anticipated DC Date: Planned Disposition: Home Primary Insurance: [facility] MEDIC[employer] SOLUTIONS Discharge Planning Comments: CM met with patient at bedside after explaining CM role and obtaining verbal consent. Patient lives at home with his ex- and plans to return there upon discharge. Patient feels this would be a safe discharge. CM discussed availability / needs of home health and medical equipment. Patient denies any discharge needs at this time. Patient states he will have his family drive him home upon discharge. CM will continue to follow and assist as needed with discharge planning / needs. Incident Response Lead: Michelle Cook DCPIA - Discharge Planning Initial Assessment Updated by [email or web address]: Michelle Cook on 11/04/18 8:00 pm * Is the patient Alert and Oriented? Yes * How many steps to enter\exit or inside your home? * PCP TOPHER * Pharmacy [facility] * Preadmission Environment Home with Family * ADLs Independent * Equipment Shower Chair * List name and contact numbers for known caregivers / representatives who currently or will assist patient after discharge: AILIN ENRIQUEZ- DAUGHTER- [phone] * Verbal permission to speak to the caregivers and representatives has been obtained from the patient. Yes * Community resources currently utilized None * Additional services required to return to the preadmission environment? No * Can the patient safely return to the preadmission environment? Yes * Has this patient been hospitalized within the prior 30 days at any hospital? No External Providers External Provider: OTHER-OTHER Next Contact Date: Service Request Date: Service Type: Resolution: Reviewer: Comments: Coverage Notice Reviewer: [id number] Usama MccannMichellekobe Bassettr Notice Issued Date-Time: 11/16/2018 17:54 Notice Type: Patient Choice Letter Notice Delivered To: Patient Relationship to Patient: Self Sales And Management Trainee Name: Delivery Method: HAND - Hand Delivered Genna Days: Prior Verbal Notification: Recipient Understood Notice: Yes Recipient Signature: Yes Med Rec Note Co-signed by Attending: Coverage Notice Comment: Last DP export: 11/18/18 2:56 p Patient Name: VICKI QUINN Page [id number] at 1741 All edits/amendments must be made on the electronic document DICTATION DATE: 11/19/181740 CARD PLAYER: BHUPINDER 11/19/181740 RPT#: [id number] DC DATE: STATUS: ADM IN [facility] [address] [place] [address] END OF REPORT
--- NOTE | 2018-11-19 18:02 | MORECARE ---
CASE MANAGEMENT DISCHARGE SUMMARY PATIENT: VICKI QUINN UNIT: [id number] ADM DATE: 11/04/18 AGE: 68 : 48 SEX: M ROOM/BED: D.[facility] AUTHOR: JACQUI,DOC PHYSICIAN: REFERRING PHYSICIAN: HEMALATHA SMITH M.D. DATE OF SERVICE: 11/19/18 Discharge Plan Patient Name: VICKI QUINN Facility: [facility]:[place] : 1950 Planned Disposition: Inpatient Rehab Anticipated Discharge Date: Discharge Date: Expected LOS: Initial Reviewer: [email or web address] Initial Review Date: 11/04/2018 Generated: 11/19/18 7:01 pm Comments DCP- Discharge Planning Updated by [id number]: Michelle Cook on 11/19/18 5:[address] [facility] has denied Inpatient Rehab after P2P. CM was notified of this at 1704 CM spoke with family they had requested that patient go to [facility] in [place]. Family had requested [facility] in [place]. CM explained that [facility] is a Inpatient Acute Rehab and that level of care has been denied. CM called [facility] and fax and notified them of referral and faxed records. It being a holiday weekend they will not be anyone in office for intake until Thursday. CM will continue to follow and assist as needed with discharge planning / needs. DCP- Discharge Planning Updated by [id number]: Michelle Cook on 11/18/18 2:[address] CM received notice that patient was denied Inpatient Rehab stated patient could have SNF rehab. CM spoke with Dr. Moreno and he has agreed to do P2P. CM called [phone] Marlene Dong and left message that we would like to set up P2P for [id number]. CM awaiting response from Marlene @ [facility]. DCP- Discharge Planning Updated by [id number]: Michelle Cook on 11/17/18 4:[address] CM spoke with Dr. Allan he requested for patient to stay here and go to Inpatient rehab here @ [facility]. CM spoke with patient and daughter regarding physician's request. They all agree to Inpatient rehab @ [facility]. CM called and left message with Maria Esther in Rehab that patient is willing to go to [facility] rehab. Records have been faxed to [facility] for auth awaiting determination. CM will continue to follow and assist as needed with discharge planning / needs. DCP- Discharge Planning Updated by [email or web address]: Michelle Cook on 11/16/18 4:[address] CM spoke with patient and daughter Ailin regarding request for inpatient rehab. Ailin requested for patient to go to inpatient rehab closer to home. AGGIE signed. CM will send records to [facility] in [place]. CM explained that d/t patent insurance it will require an auth and that usually takes up to 3 days. CM will continue to follow and assist as needed with discharge planning / needs. DCP- Discharge Planning Updated by [id number]: Michelle Cook on 11/12/18 3:[address] Patient's son is requesting Home Health upon discharge and he has spoken to Jin HEDRICK in [place]. Patient's PCP is Dr. Topher HEDRICK in [place] fax [phone]. CM will continue to follow and assist as needed with discharge planning / needs. DCP- Discharge Planning Updated by [id number]: Michelle Cook on 11/04/18 7:[address] Patient Name: VICKI QUINN Admission Status: ER Accout number: [id number] Admission Date: 11-04-2018 : 1950 Admission Diagnosis: Attending: HEMALATHA SMITH Current LOS: 1 Anticipated DC Date: Planned Disposition: Home Primary Insurance: [facility] MEDIC[employer] Discharge Planning Comments: CM met with patient at bedside after explaining CM role and obtaining verbal consent. Patient lives at home with his ex- and plans to return there upon discharge. Patient feels this would be a safe discharge. CM discussed availability / needs of home health and medical equipment. Patient denies any discharge needs at this time. Patient states he will have his family drive him home upon discharge. CM will continue to follow and assist as needed with discharge planning / needs. Global Professional: Michelle Cook DCPIA - Discharge Planning Initial Assessment Updated by [email or web address]: Michelle Cook on 11/04/18 8:00 pm * Is the patient Alert and Oriented? Yes * How many steps to enter\exit or inside your home? * PCP YOUNG * Pharmacy [facility] * Preadmission Environment Home with Family * ADLs Independent * Equipment Shower Chair * List name and contact numbers for known caregivers / representatives who currently or will assist patient after discharge: AILIN SOSA- [phone] * Verbal permission to speak to the caregivers and representatives has been obtained from the patient. Yes * Community resources currently utilized None * Additional services required to return to the preadmission environment? No * Can the patient safely return to the preadmission environment? Yes * Has this patient been hospitalized within the prior 30 days at any hospital? No Coverage Notice Reviewer: [id number] Usama Cook Notice Issued Date-Time: 11/16/2018 17:54 Notice Type: Patient Choice Letter Notice Delivered To: Patient Relationship to Patient: Self Solar Fabrication Technician Name: Delivery Method: HAND - Hand Delivered Genna Days: Prior Verbal Notification: Recipient Understood Notice: Yes Recipient Signature: Yes Med Rec Note Co-signed by Attending: Coverage Notice Comment: Last DP export: 11/19/18 4:41 p Patient Name: VICKI QUINN Page [id number] at 1802 All edits/amendments must be made on the electronic document DICTATION DATE: 11/19/181800 CODING COMPLIANCE SPECIALIST: BHUPINDER 11/19/181800 RPT#: [id number] DC DATE: STATUS: ADM IN [facility] [address] [place] [address] END OF REPORT
[2018-11-20] VITALS (24 sets, daily range): BP systolic 100–150; BP diastolic 47–82
[2018-11-20 05:38] LABS: BASOPHILS 0.1 % (0-2); EOSINOPHILS 0.1 % (0-7); HEMATOCRIT 33.2 % (42.0-54.0); HEMOGLOBIN 10.7 g/dL (13.5-17.5); MCH 30.1 pg (26.0-34.0); MCHC 32.2 g/dL (31.0-37.0); MCV 93.5 fL (80.0-100.0); MEAN PLATELET VOLUME 10.3 fL (7.4-10.4); MONOCYTES 5.4 % (2-11); NEUTROPHILS 79.4 % (40-80); PLATELET COUNT 235 10x3/uL (130-400); RBC 3.55 10x6/uL (4.20-6.10); RDW 15.5 % (11.5-14.5); WBC 11.1 10x3/uL (4.8-10.8)
[2018-11-20 05:48] LABS: CALC OSMOLALITY 282 mosm/kg (275-300); CALCIUM 7.9 mg/dL (8.5-10.1); CARBON DIOXIDE 30.7 mmol/L (21.0-32.0); CHLORIDE - SERUM 102 mmol/L (98-107); CREATININE - SERUM 0.7 mg/dL (0.6-1.3); GLUCOSE 179 mg/dL (74-106); INR 1.23 (0.85-1.17); SODIUM 137 mmol/L (136-145); UREA NITROGEN 27 mg/dL (7-18); eGFR NON AFRICAN AMERICAN > 90 mL/min (90-120)
[2018-11-21] VITALS (25 sets, daily range): BP systolic 106–170; BP diastolic 50–88
[2018-11-21 06:14] LABS: INR 1.25 (0.85-1.17); PROTIME 15.2 SECONDS (11.6-15.0)
[2018-11-22] VITALS (24 sets, daily range): BP systolic 109–145; BP diastolic 53–80
[2018-11-22 06:57] LABS: INR 3.25 (0.85-1.17); PROTIME 32.4 SECONDS (11.6-15.0)
--- NOTE | 2018-11-22 14:14 | MORECARE ---
CASE MANAGEMENT DISCHARGE SUMMARY PATIENT: VICKI QUINN UNIT: [id number] ADM DATE: 11/04/18 AGE: 68 : 48 SEX: M ROOM/BED: D.02 AUTHOR: JACQUI,DOC PHYSICIAN: REFERRING PHYSICIAN: HEMALATHA SMITH M.D. DATE OF SERVICE: 11/22/18 Discharge Plan Patient Name: VICKI QUINN Facility: [facility]:[place] : 1950 Planned Disposition: Home Anticipated Discharge Date: Discharge Date: Expected LOS: Initial Reviewer: [email or web address] Initial Review Date: 11/04/2018 Generated: 11/22/18 3:14 pm Comments DCP- Discharge Planning Updated by [id number]: Michelle Cook on 11/19/18 5:[address] [facility] has denied Inpatient Rehab after P2P. CM was notified of this at 1704 CM spoke with family they had requested that patient go to [facility] in [place]. Family had requested [facility] in [place]. CM explained that [facility] is a Inpatient Acute Rehab and that level of care has been denied. CM called [facility] and fax and notified them of referral and faxed records. It being a holiday weekend they will not be anyone in office for intake until Thursday. CM will continue to follow and assist as needed with discharge planning / needs. DCP- Discharge Planning Updated by [email or web address]: Michelle oCok on 11/18/18 2:[address] CM received notice that patient was denied Inpatient Rehab stated patient could have SNF rehab. CM spoke with Dr. Moreno and he has agreed to do P2P. CM called [phone] Marlene Dong and left message that we would like to set up P2P for [id number]. CM awaiting response from Marlene @ [facility]. DCP- Discharge Planning Updated by [email or web address]: Michelle Cook on 11/17/18 4:[address] CM spoke with Dr. Allan he requested for patient to stay here and go to Inpatient rehab here @ [facility]. CM spoke with patient and daughter regarding physician's request. They all agree to Inpatient rehab @ [facility]. CM called and left message with Maria Esther in Rehab that patient is willing to go to [facility] rehab. Records have been faxed to [facility] for auth awaiting determination. CM will continue to follow and assist as needed with discharge planning / needs. DCP- Discharge Planning Updated by [email or web address]: Michelle Cook on 11/16/18 4:[address] CM spoke with patient and daughter Ailin regarding request for inpatient rehab. Ailin requested for patient to go to inpatient rehab closer to home. AGGIE signed. CM will send records to [facility] in [place]. CM explained that d/t patent insurance it will require an auth and that usually takes up to 3 days. CM will continue to follow and assist as needed with discharge planning / needs. DCP- Discharge Planning Updated by [id number]: Michelle Cook on 11/12/18 3:[address] Patient's son is requesting Home Health upon discharge and he has spoken to Jin HEDRICK in [place]. Patient's PCP is Dr. Topher HEDRICK in [place] fax [phone]. CM will continue to follow and assist as needed with discharge planning / needs. DCP- Discharge Planning Updated by [id number]: Michelle Cook on 11/04/18 7:[address] Patient Name: VICKI QUINN Admission Status: ER Accout number: [id number] Admission Date: 11-04-2018 : 1950 Admission Diagnosis: Attending: HEMALATHA SMITH Current LOS: 1 Anticipated DC Date: Planned Disposition: Home Primary Insurance: [facility] [employer] Discharge Planning Comments: CM met with patient at bedside after explaining CM role and obtaining verbal consent. Patient lives at home with his ex- and plans to return there upon discharge. Patient feels this would be a safe discharge. CM discussed availability / needs of home health and medical equipment. Patient denies any discharge needs at this time. Patient states he will have his family drive him home upon discharge. CM will continue to follow and assist as needed with discharge planning / needs. Astronomy Instructor: Michelle Cook DCPIA - Discharge Planning Initial Assessment Updated by [email or web address]: Michelle Cook on 11/04/18 8:00 pm * Is the patient Alert and Oriented? Yes * How many steps to enter\exit or inside your home? * PCP YOUNG * Pharmacy [facility] * Preadmission Environment Home with Family * ADLs Independent * Equipment Shower Chair * List name and contact numbers for known caregivers / representatives who currently or will assist patient after discharge: AILIN SOSA- [phone] * Verbal permission to speak to the caregivers and representatives has been obtained from the patient. Yes * Community resources currently utilized None * Additional services required to return to the preadmission environment? No * Can the patient safely return to the preadmission environment? Yes * Has this patient been hospitalized within the prior 30 days at any hospital? No Coverage Notice Reviewer: [id number] Usama Cook Notice Issued Date-Time: 11/16/2018 17:54 Notice Type: Patient Choice Letter Notice Delivered To: Patient Relationship to Patient: Self Pickers Material Handlers Name: Delivery Method: HAND - Hand Delivered Genna Days: Prior Verbal Notification: Recipient Understood Notice: Yes Recipient Signature: Yes Med Rec Note Co-signed by Attending: Coverage Notice Comment: Last DP export: 11/19/18 5:02 p Patient Name: VICKI QUINN Page [id number] at 1414 All edits/amendments must be made on the electronic document DICTATION DATE: 11/22/181413 ADVERTISING SALES AGENT: BHUPINDER 11/22/181413 RPT#: [id number] DC DATE: STATUS: ADM IN [facility] [address] [place] [address] END OF REPORT
--- NOTE | 2018-11-22 14:22 | MORECARE ---
CASE MANAGEMENT DISCHARGE SUMMARY PATIENT: VICKI QUINN UNIT: [id number] ADM DATE: 11/04/18 AGE: 68 : 48 SEX: M ROOM/BED: D.02 AUTHOR: JACQUI,DOC PHYSICIAN: REFERRING PHYSICIAN: HEMALATHA SMITH M.D. DATE OF SERVICE: 11/22/18 Discharge Plan Patient Name: VICKI QUINN Facility: [facility]:[place] : 1950 Planned Disposition: Home Anticipated Discharge Date: Discharge Date: Expected LOS: Initial Reviewer: [id number] Initial Review Date: 11/04/2018 Generated: 11/22/18 3:22 pm Comments DCP- Discharge Planning Updated by [id number]: Renu Duffy on 11/22/18 1:[address] Patient Name: VICKI QUINN Admission Status: ER Accout number: [id number] Admission Date: 11-04-2018 : 1950 Admission Diagnosis:NON-ST ELEVATION (NSTEMI) MYOCARDIAL INFARCTION Attending: HEMALATHA SMITH Current LOS: 18 Anticipated DC Date: Planned Disposition: Home Primary Insurance: [facility] MEDICARE SOLUTIONS Discharge Planning Comments: CM MET WITH PATIENT AND SPOKE WITH HIS DAUGHTER. THE PLAN IS TO BE DISCHARGED TOMORROW AND WANTS NEBS [facility] [place]. AGGIE SIGNED AND I WILL FAX INFORMATION TO [facility]. ANTICIPATE DC TOMORROW. Zone Maintenance Technician: Renu Duffy DCP- Discharge Planning Updated by [email or web address]: Michelle Cook on 11/19/18 5:[address] [facility] has denied Inpatient Rehab after P2P. CM was notified of this at 7447 CM spoke with family they had requested that patient go to [facility] in [place]. Family had requested [facility] in [place]. CM explained that [facility] is a Inpatient Acute Rehab and that level of care has been denied. CM called [facility] and fax and notified them of referral and faxed records. It being a holiday weekend they will not be anyone in office for intake until Thursday. CM will continue to follow and assist as needed with discharge planning / needs. DCP- Discharge Planning Updated by [id number]: Michelle Cook on 11/18/18 2:[address] CM received notice that patient was denied Inpatient Rehab stated patient could have SNF rehab. CM spoke with Dr. Moreno and he has agreed to do P2P. CM called [phone] Marlene Dong and left message that we would like to set up P2P for [id number]. CM awaiting response from Marlene @ [facility]. DCP- Discharge Planning Updated by [id number]: Michelle Cook on 11/17/18 4:[address] CM spoke with Dr. Allan he requested for patient to stay here and go to Inpatient rehab here @ [facility]. CM spoke with patient and daughter regarding physician's request. They all agree to Inpatient rehab @ [facility]. CM called and left message with Maria Esther in Rehab that patient is willing to go to [facility] rehab. Records have been faxed to [facility] for auth awaiting determination. CM will continue to follow and assist as needed with discharge planning / needs. DCP- Discharge Planning Updated by [email or web address]: Michelle Cook on 11/16/18 4:[address] CM spoke with patient and daughter Ailin regarding request for inpatient rehab. Ailin requested for patient to go to inpatient rehab closer to home. AGGIE signed. CM will send records to [facility] in [place]. CM explained that d/t patent insurance it will require an auth and that usually takes up to 3 days. CM will continue to follow and assist as needed with discharge planning / needs. DCP- Discharge Planning Updated by [id number]: Michelle Cook on 11/12/18 3:[address] Patient's son is requesting Home Health upon discharge and he has spoken to [facility] in [place]. Patient's PCP is Dr. Topher HEDRICK in [place] fax [phone]. CM will continue to follow and assist as needed with discharge planning / needs. DCP- Discharge Planning Updated by [email or web address]: Michelle Cook on 11/04/18 7:[address] Patient Name: VICKI QUINN Admission Status: ER Accout number: [id number] Admission Date: 11-04-2018 : 1950 Admission Diagnosis: Attending: HEMALATHA SMITH Current LOS: 1 Anticipated DC Date: Planned Disposition: Home Primary Insurance: [employer]IONS Discharge Planning Comments: CM met with patient at bedside after explaining CM role and obtaining verbal consent. Patient lives at home with his ex- and plans to return there upon discharge. Patient feels this would be a safe discharge. CM discussed availability / needs of home health and medical equipment. Patient denies any discharge needs at this time. Patient states he will have his family drive him home upon discharge. CM will continue to follow and assist as needed with discharge planning / needs. Zone Maintenance Technician: Michelle Cook DCPIA - Discharge Planning Initial Assessment Updated by [id number]: Michelle Cook on 11/04/18 8:00 pm * Is the patient Alert and Oriented? Yes * How many steps to enter\exit or inside your home? * PCP YOUNG * Pharmacy [facility] * Preadmission Environment Home with Family * ADLs Independent * Equipment Shower Chair * List name and contact numbers for known caregivers / representatives who currently or will assist patient after discharge: AILIN ENRIQUEZ- [facility]- [phone] * Verbal permission to speak to the caregivers and representatives has been obtained from the patient. Yes * Community resources currently utilized None * Additional services required to return to the preadmission environment? No * Can the patient safely return to the preadmission environment? Yes * Has this patient been hospitalized within the prior 30 days at any hospital? No External Providers [facility] Next Contact Date: Service Request Date: Service Type: Resolution: Reviewer: Comments: Coverage Notice Reviewer: [id number] - Michelle Cook Notice Issued Date-Time: 11/16/2018 17:54 Notice Type: Patient Choice Letter Notice Delivered To: Patient Relationship to Patient: Self Family Coach Name: Delivery Method: HAND - Hand Delivered Genna Days: Prior Verbal Notification: Recipient Understood Notice: Yes Recipient Signature: Yes Med Rec Note Co-signed by Attending: Coverage Notice Comment: Reviewer: [id number] - Renu Duffy Notice Issued Date-Time: 11/22/2018 14:15 Notice Type: Patient Choice Letter Notice Delivered To: Patient Relationship to Patient: Family Coach Name: Delivery Method: HAND - Hand Delivered Genna Days: Prior Verbal Notification: Recipient Understood Notice: Yes Recipient Signature: Yes Med Rec Note Co-signed by Attending: Coverage Notice Comment: [facility] [place] Last DP export: 11/19/18 5:02 p Patient Name: VICKI QUINN Page [id number] at 1422 All edits/amendments must be made on the electronic document DICTATION DATE: 11/22/181420 [employer]: BHUPINDER 11/22/18 142 RPT#: [id number] DC DATE: STATUS: ADM IN [facility] [address] [place] [address] END OF REPORT
[2018-11-23] VITALS (12 sets, daily range): BP systolic 104–135; BP diastolic 55–85
[2018-11-23 04:52] LABS: BASOPHILS 0.1 % (0-2); EOSINOPHILS 0.5 % (0-7); HEMOGLOBIN 11.5 g/dL (13.5-17.5); LYMPHOCYTES 22.3 % (15-50); MCH 30.1 pg (26.0-34.0); MCHC 31.9 g/dL (31.0-37.0); MCV 94.2 fL (80.0-100.0); MEAN PLATELET VOLUME 10.3 fL (7.4-10.4); MONOCYTES 10.3 % (2-11); NEUTROPHILS 65.8 % (40-80); RBC 3.82 10x6/uL (4.20-6.10); RDW 16.1 % (11.5-14.5); WBC 12.5 10x3/uL (4.8-10.8)
[2018-11-23 04:57] LABS: PLATELET COUNT 286 10x3/uL (130-400)
[2018-11-23 05:05] LABS: INR 1.64 (0.85-1.17); PROTIME 18.9 SECONDS (11.6-15.0)
[2018-11-23 05:06] LABS: CALC OSMOLALITY 281 mosm/kg (275-300); CALCIUM 8.3 mg/dL (8.5-10.1); CARBON DIOXIDE 28.3 mmol/L (21.0-32.0); CHLORIDE - SERUM 101 mmol/L (98-107); CREATININE - SERUM 0.8 mg/dL (0.6-1.3); GLUCOSE 141 mg/dL (74-106); POTASSIUM - SERUM 4.7 mmol/L (3.5-5.1); SODIUM 137 mmol/L (136-145); UREA NITROGEN 30 mg/dL (7-18); eGFR NON AFRICAN AMERICAN > 90 mL/min (90-120)
[2018-11-23] MEDS ORDERED: IPRAT-ALBUT 0.5-3 ML UPD (10:58)
[2018-11-23] MEDS ORDERED: ATROVENT 0.02%2.5 ML UPD (10:58)
[2018-11-23] MEDS ORDERED: COUMADIN5 MG PO (11:00)
[2018-11-23] MEDS ORDERED: LISINOPRIL5 MG PO (11:01)
[2018-11-23] MEDS ORDERED: COREG6.25 MG PO (11:01)
[2018-11-23] MEDS ORDERED: LOPRESSOR25 MG PO (11:01)
[2018-11-23] MEDS ORDERED: PULMICORT0.5 MG/21 UPD (11:03)
[2018-11-23] MEDS ORDERED: COLACE100 MG PO (11:04)
[2018-11-23] MEDS ORDERED: Xopenex 0.63 MG INH INH (11:05)
[2018-11-23] MEDS ORDERED: XOPENEX 0.0.63 MG/3 UPD (11:20)
--- NOTE | 2018-11-23 12:21 | MORECARE ---
CASE MANAGEMENT DISCHARGE SUMMARY PATIENT: VICKI QUINN UNIT: [id number] ADM DATE: 11/04/18 AGE: 68 : 48 SEX: M ROOM/BED: D.02 AUTHOR: JACQUI,DOC PHYSICIAN: REFERRING PHYSICIAN: HEMALATHA SMITH M.D. DATE OF SERVICE: 11/23/18 Discharge Plan Patient Name: VICKI QUINN Facility: [facility]:[place] : 1950 Planned Disposition: Home Anticipated Discharge Date: Discharge Date: Expected LOS: Initial Reviewer: [id number] Initial Review Date: 11/04/2018 Generated: 11/23/18 1:20 pm Comments DCP- Discharge Planning Updated by [id number]: Renu Duffy on 11/22/18 1:[address] Patient Name: VICKI QUINN Admission Status: ER Accout number: [id number] Admission Date: 11-04-2018 : 1950 Admission Diagnosis:NON-ST ELEVATION (NSTEMI) MYOCARDIAL INFARCTION Attending: HEMALATHA SMITH Current LOS: 18 Anticipated DC Date: Planned Disposition: Home Primary Insurance: [facility] MEDICARE SOLUTIONS Discharge Planning Comments: CM MET WITH PATIENT AND SPOKE WITH HIS DAUGHTER. THE PLAN IS TO BE DISCHARGED TOMORROW AND [facility] [place]. AGGIE SIGNED AND I WILL FAX INFORMATION TO [facility]. ANTICIPATE DC TOMORROW. Station Mechanic Helper: Renu Duffy DCP- Discharge Planning Updated by [id number]: Michelle Cook on 11/19/18 5:[address] [facility] has denied Inpatient Rehab after P2P. CM was notified of this at [phone] CM spoke with family they had requested that patient go to [facility] in [place]. Family had requested [facility] in [place]. CM explained that [facility] is a Inpatient Acute Rehab and that level of care has been denied. CM called [facility] and fax and notified them of referral and faxed records. It being a holiday weekend they will not be anyone in office for intake until Thursday. CM will continue to follow and assist as needed with discharge planning / needs. DCP- Discharge Planning Updated by [id number]: Michelle Cook on 11/18/18 2:[address] CM received notice that patient was denied Inpatient Rehab stated patient could have SNF rehab. CM spoke with Dr. Moreno and he has agreed to do P2P. CM called [phone] Marlene Dong and left message that we would like to set up P2P for [id number]. CM awaiting response from Marlene @ [facility]. DCP- Discharge Planning Updated by [id number]: Michelle Cook on 11/17/18 4:[address] CM spoke with Dr. Allan he requested for patient to stay here and go to Inpatient rehab here @ [facility]. CM spoke with patient and daughter regarding physician's request. They all agree to Inpatient rehab @ [facility]. CM called and left message with Maria Esther in Rehab that patient is willing to go to [facility] rehab. Records have been faxed to [facility] for auth awaiting determination. CM will continue to follow and assist as needed with discharge planning / needs. DCP- Discharge Planning Updated by [id number]: Michelle Cook on 11/16/18 4:[address] CM spoke with patient and daughter Ailin regarding request for inpatient rehab. Ailin requested for patient to go to inpatient rehab closer to home. AGGIE signed. CM will send records to [facility] in [place]. CM explained that d/t patent insurance it will require an auth and that usually takes up to 3 days. CM will continue to follow and assist as needed with discharge planning / needs. DCP- Discharge Planning Updated by [id number]: Michelle Cook on 11/12/18 3:[address] Patient's son is requesting Home Health upon discharge and he has spoken to [facility] in [place]. Patient's PCP is Dr. Topher HEDRICK in [place] fax [phone]. CM will continue to follow and assist as needed with discharge planning / needs. DCP- Discharge Planning Updated by [id number]: Michelle Cook on 11/04/18 7:[address] Patient Name: VICKI QUINN Admission Status: ER Accout number: [id number] Admission Date: 11-04-2018 : 1950 Admission Diagnosis: Attending: HEMALATHA SMITH Current LOS: 1 Anticipated DC Date: Planned Disposition: Home Primary Insurance: [employer] Discharge Planning Comments: CM met with patient at bedside after explaining CM role and obtaining verbal consent. Patient lives at home with his ex- and plans to return there upon discharge. Patient feels this would be a safe discharge. CM discussed availability / needs of home health and medical equipment. Patient denies any discharge needs at this time. Patient states he will have his family drive him home upon discharge. CM will continue to follow and assist as needed with discharge planning / needs. Station Mechanic Helper: Michelle Cook DCPIA - Discharge Planning Initial Assessment Updated by [id number]: Michelle Cook on 11/04/18 8:00 pm * Is the patient Alert and Oriented? Yes * How many steps to enter\exit or inside your home? * PCP YOUNG * Pharmacy [facility] * Preadmission Environment Home with Family * ADLs Independent * Equipment Shower Chair * List name and contact numbers for known caregivers / representatives who currently or will assist patient after discharge: AILIN ENRIQUEZ- [facility]- [phone] * Verbal permission to speak to the caregivers and representatives has been obtained from the patient. Yes * Community resources currently utilized None * Additional services required to return to the preadmission environment? No * Can the patient safely return to the preadmission environment? Yes * Has this patient been hospitalized within the prior 30 days at any hospital? No External Providers External Provider[facility] Next Contact Date: Service Request Date: Service Type: Resolution: Reviewer: Comments: Coverage Notice Reviewer: [id number] - Michelle Cook Notice Issued Date-Time: 11/16/2018 17:54 Notice Type: Patient Choice Letter Notice Delivered To: Patient Relationship to Patient: Self Coating Machine Feeder Name: Delivery Method: HAND - Hand Delivered Genna Days: Prior Verbal Notification: Recipient Understood Notice: Yes Recipient Signature: Yes Med Rec Note Co-signed by Attending: Coverage Notice Comment: Reviewer: [id number] - Renu Duffy Notice Issued Date-Time: 11/22/2018 14:15 Notice Type: Patient Choice Letter Notice Delivered To: Patient Relationship to Patient: Coating Machine Feeder Name: Delivery Method: HAND - Hand Delivered Genna Days: Prior Verbal Notification: Recipient Understood Notice: Yes Recipient Signature: Yes Med Rec Note Co-signed by Attending: Coverage Notice Comment: [facility] [place] Last DP export: 11/22/18 1:22 pm Patient Name: VICKI QUINN Page [id number] at 1221 All edits/amendments must be made on the electronic document DICTATION DATE: 11/23/18 1220 CLEARANCE REPRESENTATIVE: BHUPINDER 11/23/18 1220 RPT#: [id number] DC DATE: STATUS: ADM IN [facility] [address] [place] [address] END OF REPORT
--- NOTE | 2018-11-23 13:18 | MORECARE ---
CASE MANAGEMENT DISCHARGE SUMMARY PATIENT: VICKI QUINN UNIT: [id number] ADM DATE: 11/04/18 AGE: 68 : 48 SEX: M ROOM/BED: D[facility] AUTHOR: JACQUIDOC PHYSICIAN: REFERRING PHYSICIAN: HEMALATHA SMITH M.D. DATE OF SERVICE: 11/23/18 Discharge Plan Patient Name: VICKI QUINN Facility: [facility]:[place] : 1950 Planned Disposition: Home Anticipated Discharge Date: Discharge Date: 11/23/2018 Expected LOS: Initial Reviewer: [id number] Initial Review Date: 11/04/2018 Generated: 11/23/18 2:18 pm Comments DCP- Discharge Planning Updated by [id number]: Michelle Cook on 11/23/18 12:[address] Patient Name: VICKI QUINN Encounter No: [id number] : 1950 Primary Insurance: [facility] MEDICARE SOLUTIONS Anticipated DC Date: Planned Disposition: Home External Planned Provider: : NONE DCP follow-up note: Patient and family in agreement with discharge plan. No changes to plan. Case management will follow and assist as needed. Michelle Cook DCP- Discharge Planning Updated by [email or web address]: Michelle Cook on 11/23/18 12:[address] CM called [facility] in [place] [phone] fax [phone] regarding Nebulizer. Rosario stated that the family can pick it up on the way home today. Patient then requested a rolling walker. CM faxed order to [facility] and left message on voicemail. D/C IMM signed 1115. CM spoke with daughter and patient regarding Home Health services. Patient and daughter Ailin both agree at this time they don't feel it is necessary for HH. CM explained that they decide they need HH post discharge to contact his PCP. CM will continue to follow and assist as needed with discharge planning needs DCP- Discharge Planning Updated by [id number]: Renu Duffy on 11/22/18 1:[address] Patient Name: VICKI QUINN Admission Status: ER Accout number: [id number] Admission Date: 11-04-2018 : 1950 Admission Diagnosis:NON-ST ELEVATION (NSTEMI) MYOCARDIAL INFARCTION Attending: HEMALATHA SMITH Current LOS: 18 Anticipated DC Date: Planned Disposition: Home Primary Insurance: [facility] [employer] SOLUTIONS Discharge Planning Comments: CM MET WITH PATIENT AND SPOKE WITH HIS DAUGHTER. THE PLAN IS TO BE DISCHARGED TOMORROW AND [facility] AGGIE SIGNED AND I WILL FAX INFORMATION TO [facility]. ANTICIPATE DC TOMORROW. Plant Anatomy Teacher: Renu Duffy DCP- Discharge Planning Updated by [email or web address]: Michelle Cook on 11/19/18 5:[address] [facility] has denied Inpatient Rehab after P2P. CM was notified of this at 1704 CM spoke with family they had requested that patient go to [facility] in [place]. Family had requested [facility] in [place]. CM explained that [facility] is a Inpatient Acute Rehab and that level of care has been denied. CM called [facility] and fax and notified them of referral and faxed records. It being a holiday weekend they will not be anyone in office for intake until Thursday. CM will continue to follow and assist as needed with discharge planning / needs. DCP- Discharge Planning Updated by [id number]: Michelle Cook on 11/18/18 2:[address] CM received notice that patient was denied Inpatient Rehab stated patient could have SNF rehab. CM spoke with Dr. Moreno and he has agreed to do P2P. CM called [phone] Marlene Dong and left message that we would like to set up P2P for [id number]. CM awaiting response from Marlene @ [facility]. DCP- Discharge Planning Updated by [email or web address]: Michelle Cook on 11/17/18 4:[address] CM spoke with Dr. Allan he requested for patient to stay here and go to Inpatient rehab here @ [facility]. CM spoke with patient and daughter regarding physician's request. They all agree to Inpatient rehab @ [facility]. CM called and left message with Maria Esther in Rehab that patient is willing to go to [facility] rehab. Records have been faxed to [facility] for auth awaiting determination. CM will continue to follow and assist as needed with discharge planning / needs. DCP- Discharge Planning Updated by [id number]: Michelle Cook on 11/16/18 4:[address] CM spoke with patient and daughter Ailin regarding request for inpatient rehab. Ailin requested for patient to go to inpatient rehab closer to home. AGGIE signed. CM will send records to [facility] in [place]. CM explained that d/t patent insurance it will require an auth and that usually takes up to 3 days. CM will continue to follow and assist as needed with discharge planning / needs. DCP- Discharge Planning Updated by [id number]: Michelle Cook on 11/12/18 3:[address] Patient's son is requesting Home Health upon discharge and he has spoken to [facility] EHDRICK in [place]. Patient's PCP is Dr. Topher HEDRICK in [place] fax [phone]. CM will continue to follow and assist as needed with discharge planning / needs. DCP- Discharge Planning Updated by [email or web address]: Michelle Cook on 11/04/18 7:[address] Patient Name: VICKI QUINN Admission Status: ER Accout number: [id number] Admission Date: 11-04-2018 : 1950 Admission Diagnosis: Attending: HEMALATHA SMITH Current LOS: 1 Anticipated DC Date: Planned Disposition: Home Primary Insurance: [facility] [employer] Discharge Planning Comments: CM met with patient at bedside after explaining CM role and obtaining verbal consent. Patient lives at home with his ex- and plans to return there upon discharge. Patient feels this would be a safe discharge. CM discussed availability / needs of home health and medical equipment. Patient denies any discharge needs at this time. Patient states he will have his family drive him home upon discharge. CM will continue to follow and assist as needed with discharge planning / needs. Plant Anatomy Teacher: Michelle Cook DCPIA - Discharge Planning Initial Assessment Updated by [id number]: Michelle Cook on 11/04/18 8:00 pm * Is the patient Alert and Oriented? Yes * How many steps to enter\exit or inside your home? * PCP TOPHER * Pharmacy [facility] * Preadmission Environment Home with Family * ADLs Independent * Equipment Shower Chair * List name and contact numbers for known caregivers / representatives who currently or will assist patient after discharge: AILIN ENRIQUEZ- [facility]- [phone] * Verbal permission to speak to the caregivers and representatives has been obtained from the patient. Yes * Community resources currently utilized None * Additional services required to return to the preadmission environment? No * Can the patient safely return to the preadmission environment? Yes * Has this patient been hospitalized within the prior 30 days at any hospital? No Coverage Notice Reviewer: [id number] Usama Cook Notice Issued Date-Time: 11/16/2018 17:54 Notice Type: Patient Choice Letter Notice Delivered To: Patient Relationship to Patient: Self Storekeeper Helper Name: Delivery Method: HAND - Hand Delivered Genna Days: Prior Verbal Notification: Recipient Understood Notice: Yes Recipient Signature: Yes Med Rec Note Co-signed by Attending: Coverage Notice Comment: Reviewer: [id number] Usama Duffy Notice Issued Date-Time: 11/22/2018 14:15 Notice Type: Patient Choice Letter Notice Delivered To: Patient Relationship to Patient: Storekeeper Helper Name: Delivery Method: HAND - Hand Delivered Genna Days: Prior Verbal Notification: Recipient Understood Notice: Yes Recipient Signature: Yes Med Rec Note Co-signed by Attending: Coverage Notice Comment: [facility] [place] Last DP export: 11/23/18 11:21 am Patient Name: VICKI QUINN Page [id number] at 1318 All edits/amendments must be made on the electronic document DICTATION DATE: 11/23/18 1318 CRYPTANALYST: BHUPINDER 11/23/18 1318 RPT#: [id number] DC DATE:11/23/18 STATUS: DIS IN [facility] [address] [place] [address] END OF REPORT
--- NOTE | 2018-11-23 13:28 | MORECARE ---
CASE MANAGEMENT DISCHARGE SUMMARY PATIENT: VICKI QUINN UNIT: [id number] ADM DATE: 11/04/18 AGE: 68 : [birth year] SEX: M ROOM/BED: D.[facility] AUTHOR: JACQUIDOC PHYSICIAN: REFERRING PHYSICIAN: HEMALATHA SMITH M.D. DATE OF SERVICE: 11/23/18 Discharge Plan Patient Name: VICKI QUINN Facility: [facility]:[place] : 1950 Planned Disposition: Home Anticipated Discharge Date: Discharge Date: 11/23/2018 Expected LOS: Initial Reviewer: [email or web address] Initial Review Date: 11/04/2018 Generated: 11/23/18 2:27 pm Comments DCP- Discharge Planning Updated by [id number]: Michelle Cook on 11/23/18 12:[address] Patient Name: VICKI QUINN Encounter No: [id number] : 1950 Primary Insurance: [facility] MEDICARE SOLUTIONS Anticipated DC Date: Planned Disposition: Home External Planned Provider: : NONE DCP follow-up note: Patient and family in agreement with discharge plan. No changes to plan. Case management will follow and assist as needed. Michelle Cook DCP- Discharge Planning Updated by [id number]: Michelle Cook on 11/23/18 12:[address] CM called [facility] in [place] [phone] fax [phone] regarding Nebulizer. Rosario stated that the family can pick it up on the way home today. Patient then requested a rolling walker. CM faxed order to [facility] and left message on voicemail. D/C IMM signed 1115. CM spoke with daughter and patient regarding Home Health services. Patient and daughter Ailin both agree at this time they don't feel it is necessary for HH. CM explained that they decide they need HH post discharge to contact his PCP. CM will continue to follow and assist as needed with discharge planning needs DCP- Discharge Planning Updated by [email or web address]: Renu Duffy on 11/22/18 1:[address] Patient Name: VICKI QUINN Admission Status: ER Accout number: [id number] Admission Date: 11-04-2018 : 1950 Admission Diagnosis:NON-ST ELEVATION (NSTEMI) MYOCARDIAL INFARCTION Attending: HEMALATHA SMITH Current LOS: 18 Anticipated DC Date: Planned Disposition: Home Primary Insurance: [facility] MEDICARE SOLUTIONS Discharge Planning Comments: CM MET WITH PATIENT AND SPOKE WITH HIS DAUGHTER. THE PLAN IS TO BE DISCHARGED TOMORROW AND WANTS NEBS THROUGH [facility]. AGGIE SIGNED AND I WILL FAX INFORMATION TO [facility]. ANTICIPATE DC TOMORROW. User Experience Researcher: Renu Duffy DCP- Discharge Planning Updated by [email or web address]: Michelle Cook on 11/19/18 5:[address] [facility] has denied Inpatient Rehab after P2P. CM was notified of this at 1704 CM spoke with family they had requested that patient go to [facility] in [place]. Family had requested [facility] in [place]. CM explained that [facility] is a Inpatient Acute Rehab and that level of care has been denied. CM called [facility] and fax and notified them of referral and faxed records. It being a holiday weekend they will not be anyone in office for intake until Thursday. CM will continue to follow and assist as needed with discharge planning / needs. DCP- Discharge Planning Updated by [id number]: Michelle Cook on 11/18/18 2:[address] CM received notice that patient was denied Inpatient Rehab stated patient could have SNF rehab. CM spoke with Dr. Moreno and he has agreed to do P2P. CM called [phone] Marlene Dong and left message that we would like to set up P2P for [id number]. CM awaiting response from Marlene @ [facility]. DCP- Discharge Planning Updated by [id number]: Michelle Cook on 11/17/18 4:[address] CM spoke with Dr. Allan he requested for patient to stay here and go to Inpatient rehab here @ [facility]. CM spoke with patient and daughter regarding physician's request. They all agree to Inpatient rehab @ [facility]. CM called and left message with Maria Esther in Rehab that patient is willing to go to [facility] rehab. Records have been faxed to [facility] for auth awaiting determination. CM will continue to follow and assist as needed with discharge planning / needs. DCP- Discharge Planning Updated by [id number]: Michelle Cook on 11/16/18 4:[address] CM spoke with patient and daughter Ailin regarding request for inpatient rehab. Ailin requested for patient to go to inpatient rehab closer to home. AGGIE signed. CM will send records to [facility] in [place]. CM explained that d/t patent insurance it will require an auth and that usually takes up to 3 days. CM will continue to follow and assist as needed with discharge planning / needs. DCP- Discharge Planning Updated by [email or web address]: Michelle Cook on 11/12/18 3:[address] Patient's son is requesting Home Health upon discharge and he has spoken to [facility] in [place]. Patient's PCP is Dr. Topher [facility] in [place] fax [phone]. CM will continue to follow and assist as needed with discharge planning / needs. DCP- Discharge Planning Updated by [id number]: Michelle Cook on 11/04/18 7:[address] Patient Name: VICKI QUINN Admission Status: ER Accout number: [id number] Admission Date: 11-04-2018 : 1950 Admission Diagnosis: Attending: HEMALATHA SMITH Current LOS: 1 Anticipated DC Date: Planned Disposition: Home Primary Insurance: [facility] MEDICARE SOLUTIONS Discharge Planning Comments: CM met with patient at bedside after explaining CM role and obtaining verbal consent. Patient lives at home with his ex- and plans to return there upon discharge. Patient feels this would be a safe discharge. CM discussed availability / needs of home health and medical equipment. Patient denies any discharge needs at this time. Patient states he will have his family drive him home upon discharge. CM will continue to follow and assist as needed with discharge planning / needs. User Experience Researcher: Michelle Cook DCPIA - Discharge Planning Initial Assessment Updated by [id number]: Michelle Cook on 11/04/18 8:00 pm * Is the patient Alert and Oriented? Yes * How many steps to enter\exit or inside your home? * PCP TOPHER * Pharmacy [facility] * Preadmission Environment Home with Family * ADLs Independent * Equipment Shower Chair * List name and contact numbers for known caregivers / representatives who currently or will assist patient after discharge: AILIN ENRIQUEZ- SHEILA- [phone] * Verbal permission to speak to the caregivers and representatives has been obtained from the patient. Yes * Community resources currently utilized None * Additional services required to return to the preadmission environment? No * Can the patient safely return to the preadmission environment? Yes * Has this patient been hospitalized within the prior 30 days at any hospital? No Coverage Notice Reviewer: [id number] Usama Cook Notice Issued Date-Time: 11/16/2018 17:54 Notice Type: Patient Choice Letter Notice Delivered To: Patient Relationship to Patient: Self Tower Excavator Operator Name: Delivery Method: HAND - Hand Delivered Genna Days: Prior Verbal Notification: Recipient Understood Notice: Yes Recipient Signature: Yes Med Rec Note Co-signed by Attending: Coverage Notice Comment: Reviewer: [id number] Usama Duffy Notice Issued Date-Time: 11/22/2018 14:15 Notice Type: Patient Choice Letter Notice Delivered To: Patient Relationship to Patient: Tower Excavator Operator Name: Delivery Method: HAND - Hand Delivered Genna Days: Prior Verbal Notification: Recipient Understood Notice: Yes Recipient Signature: Yes Med Rec Note Co-signed by Attending: Coverage Notice Comment: [facility] IN [place] Reviewer: [id number] Usama Cook Notice Issued Date-Time: 11/23/2018 11:15 Notice Type: IM Discharge Notice Notice Delivered To: Patient Relationship to Patient: Self Tower Excavator Operator Name: Delivery Method: HAND - Hand Delivered Genna Days: Prior Verbal Notification: Recipient Understood Notice: Yes Recipient Signature: Yes Med Rec Note Co-signed by Attending: Coverage Notice Comment: Last DP export: 11/23/18 12:18 pm Patient Name: VICKI QUINN Page 26811 at 1328 All edits/amendments must be made on the electronic document DICTATION DATE: 11/23/18 1327 CODING TECHNICIAN: BHUPINDER 11/23/18 1327 RPT#: [id number] DC DATE:11/23/18 STATUS: DIS IN [facility] [address] [place] [address] END OF REPORT
== END 2018-11-23 12:30 | disposition home or self-care (01) | DRG 233 ==
LOC: D.CATH 09:09 → D.CVICU 09:09 → D.ER 09:09 → EDSTATUS 10:38 → D.CVICU 13:15 → D.CATH 13:31 → D.CVICU 13:32
PROVIDERS: Emergency Medicine; Family Medicine; Internal Medicine Gastroenterology; Internal Medicine Hematology & Oncology; Internal Medicine Nephrology; Internal Medicine Pulmonary Disease; Thoracic Surgery (Cardiothoracic Vascular Surgery); ADMIT Internal Medicine Cardiovascular Disease; ATTEND Internal Medicine Cardiovascular Disease
PROC: B2151ZZ Fluoroscopy of Left Heart using Low Osmolar Contrast (ICD-10-PCS; 2018-11-04)
PROC: 4A023N7 Measurement of Cardiac Sampling and Pressure, Left Heart, Percutaneous Approach (ICD-10-PCS; 2018-11-04)
PROC: B2111ZZ Fluoroscopy of Multiple Coronary Arteries using Low Osmolar Contrast (ICD-10-PCS; principal; 2018-11-04 12:24)
PROC: 021109W Bypass Coronary Artery, Two Arteries from Aorta with Autologous Venous Tissue, Open Approach (ICD-10-PCS; 2018-11-05)
PROC: 06BP4ZZ Excision of Right Saphenous Vein, Percutaneous Endoscopic Approach (ICD-10-PCS; 2018-11-05)
PROC: 5A02210 Assistance with Cardiac Output using Balloon Pump, Continuous (ICD-10-PCS; 2018-11-05)
PROC: 5A1221Z Performance of Cardiac Output, Continuous (ICD-10-PCS; 2018-11-05)
PROC: 02100Z9 Bypass Coronary Artery, One Artery from Left Internal Mammary, Open Approach (ICD-10-PCS; 2018-11-05 14:20)
PROC: 05HY33Z Insertion of Infusion Device into Upper Vein, Percutaneous Approach (ICD-10-PCS; 2018-11-09)
DX: I21.4 Non-ST elevation (NSTEMI) myocardial infarction (principal); K72.00 Acute and subacute hepatic failure without coma; I50.21 Acute systolic (congestive) heart failure; J95.821 Acute postprocedural respiratory failure; D62 Acute posthemorrhagic anemia; N17.9 Acute kidney failure, unspecified; I48.1 Persistent atrial fibrillation; E11.9 Type 2 diabetes mellitus without complications; I10 Essential (primary) hypertension; E78.5 Hyperlipidemia, unspecified; F17.200 Nicotine dependence, unspecified, uncomplicated; I25.10 Atherosclerotic heart disease of native coronary artery without angina pectoris; G47.33 Obstructive sleep apnea (adult) (pediatric); Z91.19 Patient's noncompliance with other medical treatment and regimen; G89.29 Other chronic pain; I11.0 Hypertensive heart disease with heart failure; I50.9 Heart failure, unspecified; K21.9 Gastro-esophageal reflux disease without esophagitis; M19.90 Unspecified osteoarthritis, unspecified site; Z79.01 Long term (current) use of anticoagulants; Z86.711 Personal history of pulmonary embolism; I48.0 Paroxysmal atrial fibrillation; D75.82 Heparin induced thrombocytopenia (HIT); E66.9 Obesity, unspecified; J44.9 Chronic obstructive pulmonary disease, unspecified

== ENCOUNTER 2018-12-05 23:53 | Inpatient (IN) | payer MEDICARE ==
[~2018-12-05] VITALS: Ht 190.5 cm; Wt 121.6 kg
[~2018-12-05 23:53] MED LIST: ATROVENT 0.02%2.5 ML UPD; CALCIUM 250+D T1 TAB PO; COLACE100 MG PO; COREG6.25 MG PO; COUMADIN5 MG PO; COUMADIN7.5 MG PO; FLAX SEED OIL PO; GLUCOPHAGE500 MG PO; IPRAT-ALBUT 0.5-3 ML UPD; JARDIANCE10 MG PO; KLOR-CON 1010 MEQ PO; LASIX40 MG PO; LASIX80 MG PO; LISINOPRIL5 MG PO; LOPRESSOR25 MG PO; METOPROLOL TART25 MG PO; NEURONTIN 400400 MG PO; PERCOCET 10-321 EAC1 PO; PHENERGAN25 M1 PO; PULMICORT0.5 MG/21 UPD; TRAZODONE HCL150 MG PO; XOPENEX 0.0.63 MG/3 UPD; Xopenex 0.63 MG INH INH; ZANAFLEX4 MG PO
[2018-12-06] VITALS (15 sets, daily range): BP systolic 94–137; BP diastolic 51–86; BMI 33.5
[2018-12-06 00:31] LABS: BASOPHILS 0.2 % (0-2); EOSINOPHILS 0.7 % (0-7); HEMATOCRIT 34.4 % (42.0-54.0); IMMATURE GRANULOCYTES 0.5 % (0-5); LYMPHOCYTES 33.9 % (15-50); MCH 29.6 pg (26.0-34.0); MCV 92.7 fL (80.0-100.0); MEAN PLATELET VOLUME 10.1 fL (7.4-10.4); MONOCYTES 7.2 % (2-11); NEUTROPHILS 57.5 % (40-80); PLATELET COUNT 239 10x3/uL (130-400); RBC 3.71 10x6/uL (4.20-6.10); RDW 15.6 % (11.5-14.5); WBC 10.1 10x3/uL (4.8-10.8)
--- NOTE | 2018-12-06 00:50 | NUR ---
PT SITTING ON SIDE OF BED. VELVET TODD AT BEDSIDE UPDATING PT AND FAMILY ON POC.
[2018-12-06 00:54] LABS: ALBUMIN 2.5 g/dL (3.4-5.0); ALKALINE PHOSPHATASE 120 U/L (46-116); ALT (SGPT) 39 U/L (10-68); BILIRUBIN - TOTAL 0.33 mg/dL (0.2-1.3); CALCIUM 8.1 mg/dL (8.5-10.1); CKMB 2.1 U/L (0.0-3.6); CREATINE KINASE 33 UL (21-232); CREATININE - SERUM 1.1 mg/dL (0.6-1.3); PRO BNP 4820 pg/mL (0-125); PROTEIN - SERUM 6.7 g/dL (6.4-8.2); TROPONIN-I < 0.017 ng/mL (0.000-0.060); UREA NITROGEN 20 mg/dL (7-18); eGFR NON AFRICAN AMERICAN 70 mL/min (90-120)
--- NOTE | 2018-12-06 00:55 | NUR ---
PT PROVIDED ICE CHIPS PER PT REQUEST. PT DAUGHTER AT BEDSIDE.
[2018-12-06 00:57] LABS: GLUCOSE 93 mg/dL (74-106)
[2018-12-06 01:03] LABS: CALC OSMOLALITY 280 mosm/kg (275-300); CHLORIDE - SERUM 104 mmol/L (98-107); POTASSIUM - SERUM 4.3 mmol/L (3.5-5.1); SODIUM 139 mmol/L (136-145)
--- NOTE | 2018-12-06 01:34 | NUR ---
PT URINATED 600 CC'S. NO CHANGE IN CONDITION OR VITAL SIGNS.
--- NOTE | 2018-12-06 01:54 | NUR ---
PT VOIDED ANOTHER 600CC'S FOR A TOTAL OF 1200 CC'S.
--- NOTE | 2018-12-06 02:52 | NUR ---
TOTAL OUTPUT IS 1900CC SO FAR.
--- NOTE | 2018-12-06 02:52 | NUR ---
PT VOIDED 700ML OF CLEAR YELLOW URINE. NO CHANGE IN HEART RATE OF YET.
[2018-12-06] MEDS ORDERED: OXYCODONE HCL10 MG PO (04:56)
[2018-12-06] MEDS ORDERED: COUMADIN5 MG PO (05:02)
[2018-12-06] MEDS ORDERED: LISINOPRIL5 MG PO (05:13)
--- NOTE | 2018-12-06 06:50 | NUR ---
ADMISSION ASSESSMENT COMPLETED. HOME MEDS REVIEWED AND ADMISSION HISTORY UPDATED.
--- NOTE | 2018-12-06 07:03 | NUR ---
PT RESTING PEACEFULLY, BREATHS EVEN, REGULAR, AND UNLABORED. NO S/S OF ACUTE DISTRESS NOTED. DID NOT FURTHER DISTURB AT THIS TIME. CL IN REACH, SRX2
--- NOTE | 2018-12-06 10:46 | NUR ---
STARTED YANIV JOHNSON PER MD ORDER.
[2018-12-06 12:53] LABS: INR 1.98 (0.85-1.17); PROTIME 21.8 SECONDS (11.6-15.0)
[2018-12-06 12:54] LABS: D-DIMER-QUANTITATIVE 1.14 ug/mLFEU (0.20-0.54)
[2018-12-06 13:08] LABS: % SATURATION 13 % (15-55); IRON 35 ug/dl (35-150); TOTAL IRON BIND CAPACITY 268 ug/dl (260-445); UNSAT IRON BIND CAPACITY 233 ug/dl (150-375)
[2018-12-06 13:33] LABS: MAGNESIUM - SERUM 2.1 mg/dL (1.8-2.4); THYROID STIMULATING HORMONE 2.31 uIU/mL (0.36-3.74)
[2018-12-07] VITALS: BP 136/56
--- NOTE | 2018-12-07 01:10 | NUR ---
RESTING WITH EYES CLOSED, RESPERATIONS EVEN, NO S/S DISTRESS NOTED.
--- NOTE | 2018-12-07 03:24 | NUR ---
I have reviewed this patient and I concur with the Shift Assessment completed by the Licensed Practical Nurse today this shift.
[2018-12-07 04:00] VITALS: BP 124/52
[2018-12-07 06:37] LABS: BASOPHILS 0.1 % (0-2); EOSINOPHILS 1.4 % (0-7); HEMATOCRIT 33.9 % (42.0-54.0); HEMOGLOBIN 10.8 g/dL (13.5-17.5); IMMATURE GRANULOCYTES 0.6 % (0-5); LYMPHOCYTES 32.3 % (15-50); MCH 29.8 pg (26.0-34.0); MCHC 31.9 g/dL (31.0-37.0); MCV 93.4 fL (80.0-100.0); MEAN PLATELET VOLUME 10.1 fL (7.4-10.4); NEUTROPHILS 57.6 % (40-80); PLATELET COUNT 230 10x3/uL (130-400); RBC 3.63 10x6/uL (4.20-6.10); RDW 15.3 % (11.5-14.5)
[2018-12-07 06:55] LABS: ANION GAP 12.7 mmol/L (8-16); CALCIUM 7.8 mg/dL (8.5-10.1); CARBON DIOXIDE 28.9 mmol/L (21.0-32.0); CREATININE - SERUM 1.2 mg/dL (0.6-1.3); MAGNESIUM - SERUM 1.9 mg/dL (1.8-2.4)
[2018-12-07 06:58] LABS: POTASSIUM - SERUM 3.6 mmol/L (3.5-5.1)
[2018-12-07 08:39] VITALS: BP 112/43
[2018-12-07 11:34] VITALS: BP 116/47
--- NOTE | 2018-12-07 13:03 | EC ---
PATIENT:VICKI QUINN DATE OF SERVICE: 12/06/18 SEX: M MEDICAL RECORD: [id number] DATE OF : [birth year] LOCATION:D.M2 D.212 AGE OF PATIENT: 68 ADMISSION DATE: 12/06/18 REFERRING PHYSICIAN: INTERPRETING PHYSICIAN: RAJANI WHITE MD ECHOCARDIOGRAM REPORT ECHO CHARGES 5 ECHO LIMITED Date: 12/06/18 CLINICAL DIAGNOSIS: ATRIAL FLUTTER, RECENT CABG ECHOCARDIOGRAPHIC MEASUREMENTS (adult normal given) AC root (d.<3.7cm) 0 cm LV Septum d (<1.2 cm> 0 cm Valve Excursion 0 cm LV Septum (systole) 0 cm Left Atria (s.<4.0cm> 4.5 cm LVPW d(<1.2cm) 0 cm RV (d.<2.3cm) 0 cm LVPW (sytole) 0 cm LV diastole(<5.6CM) 0 cm MV E-F(>70mm/sec) 0 cm LV systole 00 cm LVOT Diameter 0 cm MV exc.(>10mm) cm Est.ejection fraction (50-75%) % DOPPLER: LVIT cm/sec A 0 cm/sec E 0 cm/sec LA 0 cm/sec RVSP 0 mmHg LVOT 0 cm/sec AOP1/2T 00 m/s Asc. Ao 0 cm/sec RVOT 0 cm/sec RA 0 cm/sec PA 0 cm/sec AV Gradient Peak 0 mmHg AV Mean 0 mmHg AV Area 0 cm MV Gradient Peak 0 mmHg MV Mean 0 mmHg MV Area cm COMMENTS: Cigarette Carton Sealer: Luis MCKEONVIRIDIANA PALOMO Manager Electrical: 3 Dr. Gleason TAPE# PACS Pericardial Effusion N DATE OF SERVICE: Adequate 2D, color flow, spectral Doppler, and M-mode. Grossly LVH appears present. LV internal dimensions are normal. Difficult to fully assess focal wall motion from underlying arrhythmia; however, from views present we estimate the EF to be reduced at 30% to 35%. Aortic valve sclerosis without evidence of stenosis. Left atrium is dilated at 4.5 cm. Mitral valve shows probable mild MR. Right-sided chambers are grossly normal. Mild TR. TRANSINT:[id number] Voice Confirmation ID: [id number] DOCUMENT ID: [id number] ECHOCARDIOGRAM REPORT [id number] VICKI QUINN RAJANI WHITE MD at 1303 CC: [id number] DICTATION DATE: 12/06/18 1140 SALES ENABLEMENT SPECIALIST: 12/06/18 1223 ADM IN [facility] [address] [place] [id number]
--- NOTE | 2018-12-07 14:24 | NUR ---
I have reviewed this patient and I concur with the Shift Assessment completed by the Licensed Practical Nurse today this shift.
[2018-12-07 14:45] LABS: APPEARANCE CLEAR (CLEAR); BILIRUBIN NEGATIVE (NEGATIVE); COLOR YELLOW (YELLOW); GLUCOSE 1000 mg/dL (NEGATIVE); KETONE NEGATIVE (NEGATIVE); NITRITE NEGATIVE (NEGATIVE); PROTEIN NEGATIVE (NEGATIVE); SPECIFIC GRAVITY 1.015 (1.005-1.020); UROBILINOGEN NORMAL (NORMAL)
[2018-12-07 15:42] VITALS: BP 136/61
--- NOTE | 2018-12-07 18:50 | NUR ---
EVENING ROUNDS COMPLETE, PT SITTING UP IN CHAIR NEXT TO BED, NO SIGNS OF DISTRESS, AAO X4, NO NEEDS VOICED AT THIS TIME. CL IN REACH, BED IN LOWEST POSITION. CONT WITH POC.
[2018-12-07 21:01] VITALS: BP 132/64
[2018-12-08] VITALS: BP 121/57
[2018-12-08 04:00] VITALS: BP 121/57
[2018-12-08 06:09] LABS: BASOPHILS 0.1 % (0-2); HEMATOCRIT 32.8 % (42.0-54.0); HEMOGLOBIN 10.6 g/dL (13.5-17.5); IMMATURE GRANULOCYTES 0.5 % (0-5); LYMPHOCYTES 31.9 % (15-50); MCH 30.2 pg (26.0-34.0); MCHC 32.3 g/dL (31.0-37.0); MCV 93.4 fL (80.0-100.0); MEAN PLATELET VOLUME 10.1 fL (7.4-10.4); MONOCYTES 9.9 % (2-11); NEUTROPHILS 56.6 % (40-80); PLATELET COUNT 242 10x3/uL (130-400); RBC 3.51 10x6/uL (4.20-6.10); RDW 15.2 % (11.5-14.5); WBC 7.7 10x3/uL (4.8-10.8)
[2018-12-08 06:28] LABS: INR 1.89 (0.85-1.17); PROTIME 21.1 SECONDS (11.6-15.0)
[2018-12-08 06:34] LABS: CALC OSMOLALITY 285 mosm/kg (275-300); CALCIUM 7.9 mg/dL (8.5-10.1); CHLORIDE - SERUM 102 mmol/L (98-107); GLUCOSE 177 mg/dL (74-106); POTASSIUM - SERUM 3.4 mmol/L (3.5-5.1); SODIUM 138 mmol/L (136-145); UREA NITROGEN 30 mg/dL (7-18); eGFR NON AFRICAN AMERICAN 78 mL/min (90-120)
[2018-12-08 08:00] VITALS: BP 131/76
--- NOTE | 2018-12-08 08:52 | NUR ---
AM MEDS GIVEN AT THIS TIME. PT A/O X4, RESP EVEN AND UNLABORED ON RA. LT AC IV SL. PT DENIES ANY NEEDS AT THIS TIME. CALL LIGHT IN REACH, NAD NOTED, WILL CONTINUE PLAN OF CARE.
--- NOTE | 2018-12-08 10:14 | NUR ---
PT IN BED, RESTING COMFORTABLY, GAVE PAIN MEDICATION, PT RATES PAIN LEVEL 6/10. DENIES ANY NEEDS AT THIS TIME, CALL LIGHT IN REACH, NAD NOTED, WILL CONTINUE TO MONITOR.
--- NOTE | 2018-12-08 11:27 | NUR ---
BLOOD SUGAR OF 185, 2UNITS OF INSULIN GIVEN PER S/S. PT DENIES ANY NEEDS AT THIS TIME. CALL LIGHT IN REACH, NAD NOTED, WILL CONTINUE TO MONITOR.
[2018-12-08 12:00] VITALS: BP 148/71
[2018-12-08 12:42] VITALS: Ht 190.5 cm; Wt 121.6 kg
[2018-12-08 16:00] VITALS: BP 116/59
--- NOTE | 2018-12-08 19:22 | NUR ---
BEDSIDE REPORT RECEIVED FROM DAY SHIFT, PT CARE ASSUMED. INTRODUCED SELF AND WROTE NAME ON BOARD. PT SITTING UP IN BED WATCHING TV, AAOX4. DENIES ANY NEEDS AT THIS TIME. BED IN LOWEST POSITION, SR X2, CALL LIGHT WITHIN REACH. WILL CONTINUE TO MONITOR.
[2018-12-08 20:47] VITALS: BP 145/70
[2018-12-09] VITALS: BP 112/61; BP 144/68
[2018-12-09 04:00] VITALS: BP 122/59
[2018-12-09 05:56] LABS: BASOPHILS 0.1 % (0-2); EOSINOPHILS 1.2 % (0-7); HEMATOCRIT 34.1 % (42.0-54.0); HEMOGLOBIN 10.9 g/dL (13.5-17.5); IMMATURE GRANULOCYTES 0.5 % (0-5); LYMPHOCYTES 30.3 % (15-50); MCH 29.9 pg (26.0-34.0); MCV 93.7 fL (80.0-100.0); MONOCYTES 10.7 % (2-11); NEUTROPHILS 57.2 % (40-80); PLATELET COUNT 247 10x3/uL (130-400); RBC 3.64 10x6/uL (4.20-6.10); RDW 15.1 % (11.5-14.5); WBC 7.6 10x3/uL (4.8-10.8)
[2018-12-09 06:11] LABS: INR 1.75 (0.85-1.17); PROTIME 19.8 SECONDS (11.6-15.0)
[2018-12-09 06:20] LABS: ANION GAP 9.9 mmol/L (8-16); CARBON DIOXIDE 29.6 mmol/L (21.0-32.0); CREATININE - SERUM 1.1 mg/dL (0.6-1.3); MAGNESIUM - SERUM 1.9 mg/dL (1.8-2.4)
[2018-12-09 06:25] LABS: POTASSIUM - SERUM 3.5 mmol/L (3.5-5.1)
--- NOTE | 2018-12-09 07:50 | NUR ---
ASSESSMENT DONE. DENIES NEEDS
[2018-12-09 08:00] VITALS: BP 109/64
--- NOTE | 2018-12-09 09:11 | NUR ---
I have reviewed this patient and I concur with the Shift Assessment completed by the Licensed Practical Nurse today this shift.
[2018-12-09 12:00] VITALS: BP 130/69
[2018-12-09] MEDS ORDERED: BETAPACE 80 MG80 MG PO (12:54)
--- NOTE | 2018-12-09 15:08 | MORECARE ---
CASE MANAGEMENT DISCHARGE SUMMARY PATIENT: VICKI QUINN UNIT: [id number] ADM DATE: 12/06/18 AGE: 68 : 48 SEX: M ROOM/BED: D.2127 AUTHOR: JAYME OSMAN PHYSICIAN: REFERRING PHYSICIAN: KEITH COLVIN MD DATE OF SERVICE: 12/09/18 Discharge Plan Patient Name: VICKI QUINN Facility: [facility]:[place] : 1950 Planned Disposition: Home Anticipated Discharge Date: 12/10/18 Discharge Date: Expected LOS: 4 Initial Reviewer: [email or web address] Initial Review Date: 12/09/2018 Generated: 12/09/18 4:08 pm Patient Name: VICKI QUINN Page 19315 at 1508 All edits/amendments must be made on the electronic document DICTATION DATE: 12/09/18 1508 SCALE ADJUSTER: BHUPINDER 12/09/18 1508 RPT#: [id number] DC DATE: STATUS: ADM IN [facility] [address] [place] [address] END OF REPORT
--- NOTE | 2018-12-09 15:16 | MORECARE ---
CASE MANAGEMENT DISCHARGE SUMMARY PATIENT: VICKI QUINN UNIT: [id number] ADM DATE: 12/06/18 AGE: 68 : [birth year] SEX: M ROOM/BED: D.2321 AUTHOR: JACQUI,DOC PHYSICIAN: REFERRING PHYSICIAN: KEITH COLVIN MD DATE OF SERVICE: 12/09/18 Discharge Plan Patient Name: VICKI QUINN Facility: [facility]:[place] : 1950 Planned Disposition: Home Anticipated Discharge Date: 12/10/18 Discharge Date: Expected LOS: 4 Initial Reviewer: [email or web address] Initial Review Date: 12/09/2018 Generated: 12/09/18 4:16 pm Comments DCP- Discharge Planning Updated by [id number]: Tony Dutton on 12/09/18 2:[address] Patient Name: VICKI QUINN Admission Status: ER Accout number: [id number] Admission Date: 12-06-2018 : 1950 Admission Diagnosis:TACHYCARDIA, UNSPECIFIED Attending: KEITH COLVIN Current LOS: 3 Anticipated DC Date: 12-10-2018 Planned Disposition: Home Primary Insurance: [facility] MEDICARE SOLUTIONS Discharge Planning Comments: CM MET WITH PT IN ROOM TO DISCUSS DISCHARGE PLANNING AND NEEDS. PT REPORTS LIVING AT HOME INDEPENDENTLY WITH EX SPOUSE AND ADULT SON. PT HAS STANDARD WALKER WITH NO MEDICAL EQUIPMENT PROVIDER PREFERENCE. PT HAS NO OUTSIDE SERVICES ASSISTING IN THE HOME. CM DISCUSSED AVAILABILITY OF HOME HEALTH, REHAB SERVICES AND MEDICAL EQUIPMENT. PT DENIES DISCHARGE NEEDS, REPORTS HIS DAUGHTER WILL PICK HIM UP FOR DISCHARGE HOME. IMPORTANT MESSAGE FROM MEDICARE PROVIDED AND EXPLAINED. PT PLANS TO RETURN HOME WITH FAMILY, HAS NO ANTICIPATED DISCHARGE NEEDS AND DAUGHTER TO TRANSPORT HOME AT DISCHARGE. CM TO FOLLOW AND ASSIST IF NEEDED. Gluten Settling Tender: Tony Dutton DCPIA - Discharge Planning Initial Assessment Updated by [id number]: Tony Dutton on 12/09/18 3:09 pm * Is the patient Alert and Oriented? Yes * How many steps to enter\exit or inside your home? NONE * PCP DERIC GOMEZ * Pharmacy [facility], [place] * Preadmission Environment Home with Family * ADLs Independent * Equipment Walker * Other Equipment NO MEDICAL EQUIPMENT PROVIDER PREFERENCE * List name and contact numbers for known caregivers / representatives who currently or will assist patient after discharge: MIKEY MESSINANES, DTR, * Verbal permission to speak to the caregivers and representatives has been obtained from the patient. N/A * Community resources currently utilized None * Please name any agencies selected above. NONE * Additional services required to return to the preadmission environment? No * Can the patient safely return to the preadmission environment? Yes * Has this patient been hospitalized within the prior 30 days at any hospital? No Coverage Notice Reviewer: [id number] Usama Dutton Notice Issued Date-Time: 12/09/2018 9:05 Notice Type: IM Discharge Notice Notice Delivered To: Patient Relationship to Patient: Guard Manager Name: Delivery Method: HAND - Hand Delivered Genna Days: Prior Verbal Notification: Recipient Understood Notice: Yes Recipient Signature: Yes Med Rec Note Co-signed by Attending: Coverage Notice Comment: Last DP export: 12/09/18 2:08 p Patient Name: VICKI QUINN Page 12437 at 1516 All edits/amendments must be made on the electronic document DICTATION DATE: 12/09/18 1515 SERVICE PLUMBER: BHUPINDER 12/09/18 1515 RPT#: [id number] DC DATE: STATUS: ADM IN [facility] [address] [place] [address] END OF REPORT
[2018-12-09 16:18] VITALS: BP 138/75
--- NOTE | 2018-12-09 17:36 | NUR ---
WITHOUT CHANGES OR DISTRESS NOTED AT THIS TIME. DENIES NEEDS
--- NOTE | 2018-12-09 19:30 | NUR ---
ASSESSMENT COMPLETE, PT A&O. RESPERATIONS EVEN ON RA. IV TO LEFT WIRST SL. MID STERNAL INCISION OPEN TO AIR, NO DRAINAGE NOTED. INCIIONS X2 NOTED TO RIGHT LEG, OPEN TO AIR, NO DRAINAGE NOTED. ANUSHA HOSE IN USE, PT STATED THAT HE HAD JUST PUT THEM BACK ON FOR THE NIGHT. PT CURRENTLY DENIES PAIN OR NEEDS, BED LOW, CL IN REACH.
[2018-12-09 20:00] VITALS: BP 129/63
--- NOTE | 2018-12-09 20:35 | NUR ---
AMBULATING IN [place] WITH WALKER.
--- NOTE | 2018-12-09 20:57 | NUR ---
HS MEDS GIVEN WITH FRESH ICE WATER. OXYCODONE GIVEN SCHEDLUED, PT RATES PAIN AT AN 8 ON PAIN SCALE.
--- NOTE | 2018-12-10 02:07 | NUR ---
RESTING WITH EYES CLOSED, RESPERATIONS EVEN, NO S/S DISTRESS NOTED.
--- NOTE | 2018-12-10 03:22 | NUR ---
I have reviewed this patient and I concur with the Shift Assessment completed by the Licensed Practical Nurse today this shift.
[2018-12-10 04:00] VITALS: BP 124/62
[2018-12-10 06:44] LABS: BASOPHILS 0.1 % (0-2); EOSINOPHILS 1.3 % (0-7); HEMOGLOBIN 10.3 g/dL (13.5-17.5); IMMATURE GRANULOCYTES 0.6 % (0-5); MCH 29.7 pg (26.0-34.0); MCHC 31.2 g/dL (31.0-37.0); MCV 95.1 fL (80.0-100.0); MEAN PLATELET VOLUME 9.9 fL (7.4-10.4); MONOCYTES 9.7 % (2-11); NEUTROPHILS 56.3 % (40-80); PLATELET COUNT 252 10x3/uL (130-400); RBC 3.47 10x6/uL (4.20-6.10); RDW 15.5 % (11.5-14.5); WBC 7.8 10x3/uL (4.8-10.8)
[2018-12-10 06:54] LABS: CALC OSMOLALITY 285 mosm/kg (275-300); CALCIUM 7.6 mg/dL (8.5-10.1); CHLORIDE - SERUM 103 mmol/L (98-107); GLUCOSE 175 mg/dL (74-106); MAGNESIUM - SERUM 2.1 mg/dL (1.8-2.4); SODIUM 138 mmol/L (136-145); UREA NITROGEN 28 mg/dL (7-18); eGFR NON AFRICAN AMERICAN 78 mL/min (90-120)
[2018-12-10 06:59] LABS: POTASSIUM - SERUM 4.1 mmol/L (3.5-5.1)
[2018-12-10 07:00] LABS: INR 1.75 (0.85-1.17); PROTIME 19.8 SECONDS (11.6-15.0)
--- NOTE | 2018-12-10 07:40 | NUR ---
ASSESSMENT DONE. DENIES NEEDS
[2018-12-10 08:16] VITALS: BP 138/73
[2018-12-10] MEDS ORDERED: ALDACTONE25 MG PO (10:19)
--- NOTE | 2018-12-10 12:27 | NUR ---
DC GIVEN TO PT AND DAUGHTER, JOVANNA
[2018-12-10 12:44] VITALS: BP 108/66
--- NOTE | 2018-12-10 13:08 | NUR ---
DC HOME PER PERSONAL CAR
--- NOTE | 2018-12-13 08:54 | MORECARE ---
CASE MANAGEMENT DISCHARGE SUMMARY PATIENT: VICKI QUINN UNIT: [id number] ADM DATE: 12/06/18 AGE: 68 : 46 SEX: M ROOM/BED: D.0044 AUTHOR: JACQUI,DOC PHYSICIAN: REFERRING PHYSICIAN: KEITH COLVIN MD DATE OF SERVICE: 12/13/18 Discharge Plan Patient Name: VICKI QUINN Facility: [facility]:[place] : 1950 Planned Disposition: Home Anticipated Discharge Date: 12/10/18 Discharge Date: 12/10/2018 Expected LOS: 4 Initial Reviewer: [id number] Initial Review Date: 12/09/2018 Generated: 12/13/18 9:54 am Comments DCP- Discharge Planning Updated by [email or web address]: Tony Dutton on 12/09/18 2:[address] Patient Name: VICKI QUINN Admission Status: ER Accout number: [id number] Admission Date: 12-06-2018 : 1950 Admission Diagnosis:TACHYCARDIA, UNSPECIFIED Attending: KEITH COLVIN Current LOS: 3 Anticipated DC Date: 12-10-2018 Planned Disposition: Home Primary Insurance: [facility] MEDICARE SOLUTIONS Discharge Planning Comments: CM MET WITH PT IN ROOM TO DISCUSS DISCHARGE PLANNING AND NEEDS. PT REPORTS LIVING AT HOME INDEPENDENTLY WITH EX SPOUSE AND ADULT SON. PT HAS STANDARD WALKER WITH NO MEDICAL EQUIPMENT PROVIDER PREFERENCE. PT HAS NO OUTSIDE SERVICES ASSISTING IN THE HOME. CM DISCUSSED AVAILABILITY OF HOME HEALTH, REHAB SERVICES AND MEDICAL EQUIPMENT. PT DENIES DISCHARGE NEEDS, REPORTS HIS DAUGHTER WILL PICK HIM UP FOR DISCHARGE HOME. IMPORTANT MESSAGE FROM MEDICARE PROVIDED AND EXPLAINED. PT PLANS TO RETURN HOME WITH FAMILY, HAS NO ANTICIPATED DISCHARGE NEEDS AND DAUGHTER TO TRANSPORT HOME AT DISCHARGE. CM TO FOLLOW AND ASSIST IF NEEDED. Counselor At Law: Tony Dutton DCPIA - Discharge Planning Initial Assessment Updated by [id number]: Tony Dutton on 12/09/18 3:09 pm * Is the patient Alert and Oriented? Yes * How many steps to enter\exit or inside your home? NONE * PCP DERIC GOMEZ * Pharmacy [facility], [place] * Preadmission Environment Home with Family * ADLs Independent * Equipment Walker * Other Equipment NO MEDICAL EQUIPMENT PROVIDER PREFERENCE * List name and contact numbers for known caregivers / representatives who currently or will assist patient after discharge: MIKEY ENRIQUEZ, DTR, * Verbal permission to speak to the caregivers and representatives has been obtained from the patient. N/A * Community resources currently utilized None * Please name any agencies selected above. NONE * Additional services required to return to the preadmission environment? No * Can the patient safely return to the preadmission environment? Yes * Has this patient been hospitalized within the prior 30 days at any hospital? No Coverage Notice Reviewer: [id number] Usama Dutton Notice Issued Date-Time: 12/09/2018 9:05 Notice Type: IM Discharge Notice Notice Delivered To: Patient Relationship to Patient: Charge Aide Name: Delivery Method: HAND - Hand Delivered Genna Days: Prior Verbal Notification: Recipient Understood Notice: Yes Recipient Signature: Yes Med Rec Note Co-signed by Attending: Coverage Notice Comment: Last DP export: 12/09/18 2:16 p Patient Name: VICKI QUINN Page 62654 at 0854 All edits/amendments must be made on the electronic document DICTATION DATE: 12/13/1854 HELP DESK ASSISTANT: BHUPINDER 12/13/18 0854 RPT#: [id number] DC DATE:12/10/18 STATUS: DIS IN [address] [place] [address] END OF REPORT
== END 2018-12-10 13:09 | disposition home or self-care (01) | DRG 291 ==
LOC: D.ER 23:53 → D.M2 12-06 03:46
PROVIDERS: Family Medicine; ADMIT Internal Medicine Nephrology; ATTEND Internal Medicine Nephrology
DX: I11.0 Hypertensive heart disease with heart failure (principal); I50.21 Acute systolic (congestive) heart failure; I48.92 Unspecified atrial flutter; Z79.01 Long term (current) use of anticoagulants; I48.0 Paroxysmal atrial fibrillation; I25.5 Ischemic cardiomyopathy; I25.10 Atherosclerotic heart disease of native coronary artery without angina pectoris; E11.65 Type 2 diabetes mellitus with hyperglycemia; E78.5 Hyperlipidemia, unspecified; K21.9 Gastro-esophageal reflux disease without esophagitis; D64.9 Anemia, unspecified; E11.40 Type 2 diabetes mellitus with diabetic neuropathy, unspecified; J98.4 Other disorders of lung; Z86.711 Personal history of pulmonary embolism; Z87.891 Personal history of nicotine dependence

== ENCOUNTER → 2018-12-22 15:19 | Outpatient (CLI) | payer MEDICARE ==
[2018-12-08 12:42] VITALS: BMI 33.4
[~2018-12-22 15:19] MED LIST changes: +ALDACTONE25 MG PO; +BETAPACE 80 MG80 MG PO; +OXYCODONE HCL10 MG PO
== END | disposition home or self-care (01) ==
LOC: D.RAD 15:19
PROVIDERS: ATTEND Thoracic Surgery (Cardiothoracic Vascular Surgery)
DX: Z95.5 Presence of coronary angioplasty implant and graft (principal)

== ENCOUNTER → 2018-12-28 13:02 | Outpatient (CLI) | payer MEDICARE ==
[2018-12-08 12:42] VITALS: BMI 33.4
== END | disposition home or self-care (01) ==
LOC: D.RT 13:02
PROVIDERS: ATTEND Internal Medicine Pulmonary Disease
DX: Z95.1 Presence of aortocoronary bypass graft (principal)

== ENCOUNTER → 2019-01-05 09:55 | Outpatient (CLI) | payer MEDICARE ==
[2018-12-08 12:42] VITALS: BMI 33.4
[2019-01-05 12:15] LABS: HEMATOCRIT 41.7 % (42.0-54.0); HEMOGLOBIN 13.3 g/dL (13.5-17.5); MCHC 31.9 g/dL (31.0-37.0); MCV 94.1 fL (80.0-100.0); MEAN PLATELET VOLUME 11.3 fL (7.4-10.4); PLATELET COUNT 288 10x3/uL (130-400); RBC 4.43 10x6/uL (4.20-6.10)
[2019-01-05 12:32] LABS: ALBUMIN 3.5 g/dL (3.4-5.0); ANION GAP 13.4 mmol/L (8-16); BILIRUBIN - TOTAL 0.24 mg/dL (0.2-1.3); CALCIUM 9.1 mg/dL (8.5-10.1); CARBON DIOXIDE 28.1 mmol/L (21.0-32.0); CREATININE - SERUM 1.5 mg/dL (0.6-1.3); POTASSIUM - SERUM 4.5 mmol/L (3.5-5.1); PROTEIN - SERUM 7.6 g/dL (6.4-8.2)
[2019-01-05 12:39] LABS: BASOPHILS 1 % (0-2); EOSINOPHILS 2 % (0-7); LYMPHOCYTES 16 % (15-50); MONOCYTES 10 % (2-11); NEUTROPHILS 63 % (40-80); PLATELET ESTIMATE NORMAL; SMUDGE CELLS 3+; TOXIC GRANULATION 1+; VACUOLES 1+
== END | disposition home or self-care (01) ==
LOC: D.LAB 09:55 → D.RAD 09:55
PROVIDERS: ATTEND Thoracic Surgery (Cardiothoracic Vascular Surgery)
DX: D64.9 Anemia, unspecified (principal)

== ENCOUNTER → 2019-01-28 10:44 | Outpatient (CLI) | payer MEDICARE ==
[2018-12-08 12:42] VITALS: BMI 33.4
== END | disposition home or self-care (01) ==
LOC: D.RT 01-24 12:10
PROVIDERS: ATTEND Internal Medicine Pulmonary Disease
DX: R13.10 Dysphagia, unspecified (principal); J43.9 Emphysema, unspecified

== ENCOUNTER → 2019-03-03 19:29 | Outpatient (CLI) | payer MEDICARE ==
[2018-12-08 12:42] VITALS: BMI 33.4
[2019-03-03 20:13] LABS: ANION GAP 13.1 mmol/L (8-16); CARBON DIOXIDE 27.6 mmol/L (21.0-32.0); CREATININE - SERUM 1.2 mg/dL (0.6-1.3); POTASSIUM - SERUM 4.7 mmol/L (3.5-5.1)
== END | disposition home or self-care (01) ==
LOC: D.LABREF 19:29
PROVIDERS: ATTEND Internal Medicine Pulmonary Disease
DX: J43.9 Emphysema, unspecified (principal)

== ENCOUNTER → 2019-03-10 10:40 | Outpatient (CLI) | payer MEDICARE ==
[2018-12-08 12:42] VITALS: BMI 33.4
== END | disposition home or self-care (01) ==
LOC: D.US 10:40
PROVIDERS: ATTEND Internal Medicine Pulmonary Disease
DX: Z86.711 Personal history of pulmonary embolism (principal)

== ENCOUNTER → 2019-05-19 17:10 | Outpatient (CLI) | payer MEDICARE ==
[2018-12-08 12:42] VITALS: BMI 33.4
[2019-05-19 19:18] LABS: ANION GAP 12.8 mmol/L (8-16); CARBON DIOXIDE 28.1 mmol/L (21.0-32.0); CREATININE - SERUM 1.3 mg/dL (0.6-1.3); POTASSIUM - SERUM 4.9 mmol/L (3.5-5.1)
== END | disposition home or self-care (01) ==
LOC: D.LABREF 17:10
PROVIDERS: ATTEND Internal Medicine Cardiovascular Disease
DX: R60.9 Edema, unspecified (principal)

== ENCOUNTER → 2019-09-29 19:00 | Outpatient (CLI) | payer MEDICARE ==
[2018-12-08 12:42] VITALS: BMI 33.4
[2019-09-30 03:14] LABS: ALBUMIN 3.8 g/dL (3.4-5.0); ANION GAP 11.7 mmol/L (8-16); BILIRUBIN - TOTAL 0.28 mg/dL (0.2-1.3); CALCIUM 8.5 mg/dL (8.5-10.1); CARBON DIOXIDE 28.1 mmol/L (21.0-32.0); CREATININE - SERUM 1.8 mg/dL (0.6-1.3); POTASSIUM - SERUM 4.8 mmol/L (3.5-5.1); PROTEIN - SERUM 7.3 g/dL (6.4-8.2)
== END | disposition home or self-care (01) ==
LOC: D.LABREF 19:00
PROVIDERS: ATTEND Internal Medicine Cardiovascular Disease
DX: I10 Essential (primary) hypertension (principal)